=== PATIENT | female | born 1985 | race Two or more races ===

== ENCOUNTER 2024-06-06 02:09 | Emergency (ER) | payer MEDICAID, SELFPAY ==
[2024-06-06 02:10] VITALS: BMI 28.3
--- NOTE | 2024-06-06 02:19 | EKG_ITS ---
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
[2024-06-06 02:21] VITALS: BP 127/77; PULSE 85; RESP 18; TEMP 37.2; O2SAT 99
[2024-06-06 03:38] LABS: HCG Qualitative,Urine Positive
[2024-06-06 03:44] LABS: Amphetamine/Methamp Scrn,U Negative (Negative); Barbiturate Screen,Urine Negative (Negative); Benzodiazepines Screen,Urine Negative (Negative); Benzoylecgonine Screen, Ur Negative (Negative); Fentanyl Screen,Urine Negative (Negative); Opiate Screen,Urine Negative (Negative); THC Screen,Urine Negative (Negative)
--- NOTE | 2024-06-06 04:01 | EDNOTE_ITS ---
<Statement entered by Natalee Casey MD - 06/06/24 18:35> As co-signing physician, I was present and available for consult prn. I concur with the plan and care as documented by the midlevel provider. ED Chest Pain RME/HPI General Chief Complaint: Chest Pain Stated Complaint: CHEST PAIN Time Seen by Provider: 06/06/24 03:04 Arrival date/time: 06/06/24 02:09 38F with history of appendectomy, thyroid cancer (s/p resection; on Synthroid with no recent dose changes), anxiety, and ectopic presents to ED with several hours of full-body tingling/numbness as well as CP because she has had several days of intermittent pelvic pain (but no vaginal bleeding). Because her LMP was about 5 weeks ago, she was concerned about possibly having another ectopic (leading to single tubal resection, though she doesn't remember which side). Limitations: no limitations Related Data Home Medications ?Medication ?Instructions ?Recorded ?Confirmed vit no.95-ferrous 1 tab PO DAILY 02/12/18 fumarate 28 mg-folic acid 800 mcg tablet () Allergies Allergy/AdvReac Type Severity Reaction Status Date / Time No Known Allergies Allergy Verified 06/06/24 02:17 Review of Systems Review of Systems Systems Reviewed: All systems reviewed, normal except as documented Constitutional Constitutional: Reports system reviewed and no additional complaints, except as documented, Denies fever(s) and Denies headache(s) ENT Ears, Nose, Mouth, and Throat: Denies disequilibrium and Denies headache(s) Cardiovascular Cardiovascular: Reports system reviewed and no additional complaints, except as documented, Reports as per HPI, Reports chest pain and Denies dyspnea Respiratory Respiratory: Reports system reviewed and no additional complaints, except as documented, Denies cough and Denies dyspnea Gastrointestinal Gastrointestinal: Reports system reviewed and no additional complaints, except as documented, Denies abdominal pain, Denies nausea and Denies vomiting Genitourinary Genitourinary: Reports as per HPI and Reports pelvic pain Musculoskeletal Musculoskeletal: Reports numbness and Reports tingling Neurologic Neurologic: Reports system reviewed and no additional complaints, except as documented, Reports as per HPI, Denies confusion, Denies disequilibrium, Denies headache(s), Reports numbness and Reports tingling Psychiatric Psychiatric: Denies confusion Past Medical History Past Medical History NEUROLOGIC: Positive Neurological Disorders and Migraine CARDIAC: Negative Cardiac Disorders or Congestive Heart Failure RESPIRATORY: Negative Chronic Obstructive Pulmonary Disease (COPD) GASTROINTESTINAL: Positive Hemorrhoids (during ); Negative Gastrointestinal Disorders, Hepatitis or Colorectal Cancer GENITOURINARY: Negative Genitourinary Disorders, Renal Disease or Prostate Cancer REPRODUCTIVE: Positive Previous Pregnancies; Negative Breast Cancer or Testicular Cancer MUSCULOSKELETAL: Positive Musculoskeletal Disorders (herniated disc); Negative Bone Cancer or Carpal Tunnel Syndrome ENT: Negative Cataracts ENDOCRINE: Positive Adrenal Disease; Negative Endocrine Disorders, Diabetes Mellitus Type 1 or Diabetes Mellitus Type 2 HEMATOLOGIC: Negative Blood Disorders PSYCHO/SOCIAL: Positive Anxiety and Depression (PPD) OTHER HISTORY: Positive Hospitalization (ECTOPIC ) and Chicken Pox; Negative Autoimmune Disease, Down Syndrome, Developmental Delay, Falls, Blood Transfusions, Blood Transfusion Reaction, Anesthesia Reactions, Organ Transplant, Chemotherapy, Radiation Therapy, Hyperbaric Therapy, MRSA, Vancomycin-Resistant Enterococci, Human Immunodeficiency Virus (HIV), Measles, Mumps, Rubella (Honduran Measles), Pertussis, Clostridium Difficile, Breast Cancer, Cervical Cancer, Colorectal Cancer, Lung Cancer, Ovarian Cancer, Prostate Cancer or Testicular Cancer Family History FAMILY HISTORY: Positive Family Respiratory Disorders (brother as infant of bronchitis), Family Cardiac Disorders (MOM HYPERTENSION), Family Gastrointestinal Problems (dad-ulcers) and Family Cancer (sister-brain); Negative Family Psychiatric Problems, Family Surgery or Family Anesthesia Re action Surgical History SURGICAL: Positive Abdominal Surgery; Negative Endocrine Surgery, Thyroidectomy, Ear Surgery, Tympanostomy Tube, Eye Surgery, Nose Surgery, Oral Surgery, Tonsillectomy, Adenoidectomy, Cochlear Implant, Corneal Transplant, Throat Surgery, Tracheostomy, Gastric Bypass Surgery, Gastrostomy, Bowel Surgery, Nephrectomy, Transurethral Resection, Joint Replacement, Amputation, Open Reduction Internal Fixation, Arthroscopy, Neurologic Surgery, Brain Shunt, Tubal Ligation (Right salpingectomy), Section, Vasectomy or Organ Transplant Social History SMOKING STATUS: Never smoker ED Exam General Limitations: Present no limitations General appearance: Present alert, in no apparent distress and anxious Head Head exam: Present atraumatic Eye Eye exam: Present normal appearance, PERRL and EOMI ENT ENT exam: Present normal exam, normal oropharynx and mucous membranes moist Neck Neck exam: Present normal inspection, full ROM and trachea midline Chest Chest inspection: Present normal inspection and symmetric chest wall rise Respiratory Respiratory exam: Present normal lung sounds bilaterally Cardiovascular Cardiovascular exam: Present regular rate, normal rhythm and normal heart sounds Abdominal Exam Abdominal exam: Present soft and normal bowel sounds Extremities Exam Extremities exam: Present normal inspection and full ROM Back Exam Back exam: Present normal inspection and full ROM Neurological Exam Neurological exam: Present alert, oriented X3 and CN II-XII intact Psychiatric Psychiatric exam: Present normal affect and normal mood Skin Skin exam: Present warm, dry, intact and normal color Course Quality Measures none Orders Category Date Time Status EKG (ED ONLY) *Do not use* NOW Care 06/06/24 02:19 Completed EKG (ED Only) Stat Exams 06/06/24 02:19 Draft Drug Screen,Urine Stat Lab 06/06/24 03:05 Completed HCG Qualitative,Urine Stat Lab 06/06/24 03:05 Completed Diazepam [Valium] Med 06/06/24 03:04 Discontinued 5 mg PO X1 ONE Vital Signs Vital signs: Vital Signs Temperature 99.0 F 06/06/24 02:21 Pulse Rate 85 06/06/24 02:21 Respiratory Rate 18 06/06/24 02:21 Blood Pressure 127/77 06/06/24 02:21 Pulse Oximetry (%) 99 06/06/24 02:21 Oxygen Delivery Method Room Air 06/06/24 02:21 O2 at 99% on RA and WNLs Chest Pain MDM Narrative MDM Narrative:: 38F with history of appendectomy, thyroid cancer (s/p resection; on Synthroid with no recent dose changes), anxiety, and ectopic presents to ED with several hours of full-body tingling/numbness as well as CP because she has had several days of intermittent pelvic pain (but no vaginal bleeding). Because her LMP was about 5 weeks ago, she was concerned about possibly having another ectopic (leading to single tubal resection, though she doesn't remember which side). Physical exam reveals clear lungs. RRR. No ab/pelvic tenderness. Patient is afebrile, alert, but anxious. HCG urine positive. Tox screen neg. EKG is NSR. After 2 hours observation, patient states symptoms went away. Patient declines blood work and US here as she states during her ectopic , her symptoms got worse rather than better like it did today. Patient will follow-up with OBGYN and return if any worsening symptoms. Patient data External records reviewed:: [facility] previous records Clinical information provided by:: patient Social determinants that could affect healthcare access:: mental health Patient has the following chronic illnesses:: history of thyroid cancer (s/p resection; on Synthroid with no recent dose changes), anxiety, and ectopic How is presenting disease/condition affected by chronic disease/condition?: exacerbated by Evaluation data The following diagnostics were reviewed and interpreted by me:: lab results and EKG tracing(s) Lab and/or radiology exams considered but not ordered:: ordered Interpretation Summary: above Medications / Prescriptions Medications or Prescriptions considered but not ordered:: ordered Medication administrations:: Medication Administration History Discontinued Medications Diazepam (Diazepam 5 Mg Tablet) 5 mg PO X1 ONE Stop: 06/06/24 03:05 Last Admin: 06/06/24 03:57 Dose: Not Given Documented By: SE Non-Admin Reason: Cancelled by Provider cancelled; patient declined Consultations Consultation(s) initiated? (list below): No Diagnosis Chest Pain Differential Diagnosis: fracture of rib, pneumothorax, stable angina, unstable angina pectoris, atypical chest pain, st elevation myocardial infarction, costochondritis, chest pain, biliary colic and other (anxiety, , ectopic , ACS, PE) Most likely diagnosis given after review of the tests above:: anxiety and Admission Indicated Admission indicated?: not indicated Admission Request Was there a request for admission?: No Disposition Plan Disposition Plan: Discharge Discharge Attestation Discharge Attestation: The patient and all family members were given an opportunity to ask questions and understood the discharge instructions. Discharge instructions specifically effects, indications for sooner follow up or return to the emergency department, and the expected course of current diagnosis. Patient condition: Stable Discharge Plan Plan Patient Disposition: HOME (Self Care) Disposition Comment: Stable Prescriptions/Referrals Prescriptions/Med Rec: No Action PNV cmb#95-ferrous fumarate-FA [] 28 mg iron- 800 mcg Tablet 1 tab PO DAILY Referrals: Jersey Menezes MD [Primary Care Provider] - In 1 week Problem List Clinical Impression: , Anxiety Patient/Caregiver Discharge Instructions Education Materials: Your Body's Response to Anxiety Additional Instructions: Please follow-up with PCP within 24-48 hours and return immediately if symptoms worsen. Follow-up with OBGYN for additional evaluation. Return if worsening pain and/or bleeding. Print Language: Romanian Stand Alone Forms: Patient Portal Info Letter DAJUAN/MELONY Supervising Physician DAJUAN/MELONY Supervising Physician: Dr. Casey
== END 2024-06-06 04:03 | disposition home or self-care (01) ==
PROVIDERS: Physician Assistant; Emergency Provider Emergency Medicine; PCP Family Medicine
DX: O99.340 Other mental disorders complicating pregnancy, unspecified trimester (principal); F41.9 Anxiety disorder, unspecified; O99.891 Other specified diseases and conditions complicating pregnancy; R07.9 Chest pain, unspecified; Z3A.00 Weeks of gestation of pregnancy not specified; Z85.850 Personal history of malignant neoplasm of thyroid; Z90.49 Acquired absence of other specified parts of digestive tract; Z90.79 Acquired absence of other genital organ(s); Z79.890 Hormone replacement therapy
CPT/HCPCS: 80307; 81025; 93005; 99283

== ENCOUNTER 2024-07-10 01:03 | Emergency (ER) | payer MEDICAID, SELFPAY ==
[2024-07-10 01:04] VITALS: BMI 29.0
--- NOTE | 2024-07-10 01:29 | XR_ITS ---
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
[2024-07-10 01:31] VITALS: BP 126/89; PULSE 91; RESP 16; TEMP 36.8; O2SAT 97
[2024-07-10 02:04] LABS: Collection Type, Urine Clean Catch
[2024-07-10 02:17] LABS: Bilirubin,Urine Negative (Negative); Blood,Urine Negative (Negative); Clarity,Urine Clear (Clear/Hazy); Color,Urine Colorless (Lt Yel-Yel); Glucose, Urine Negative (Negative); Ketones,Urine Negative (Negative); Leukocyte Esterase,Urine Positive (Negative); Nitrite,Urine Negative (Negative); Protein,Urine Negative (Neg - Trace); RBC,Urine 4 /hpf (0-3); Specific Gravity,Urine 1.008 (1.001-1.035); Squamous Epithelial Cell,Urine 2 /hpf (0-5); Urobilinogen,Urine Negative mg/dL (0.0-1.0); WBC,Urine 4 /hpf (0-5)
--- NOTE | 2024-07-10 04:07 | PD.EDFMALE ---
ED Female Urogenital RME/HPI General Chief complaint: Urogenital-Female Stated complaint: 10 WEEKS PREG FEELING PRESSURE Time Seen by Provider: 07/10/24 01:29 Arrival date/time: 07/10/24 01:03 38F with history of appendectomy, thyroid cancer (s/p resection; on Synthroid with no recent dose changes), anxiety, and ectopic presents to ED with 1 day of pelvic pressure, but denies dysuria, ab/pelvic pain, and vaginal bleeding. Patient had recent US that showed twin gestation around 8-10 weeks where one had FHTs and the other did not. Patient states this does not feel like a UTI because for her, it usually alcantar. Limitations: no limitations Related Data Home Medications ?Medication ?Instructions ?Recorded ?Confirmed vit no.95-ferrous 1 tab PO DAILY 02/12/18 02/12/18 fumarate 28 mg-folic acid 800 mcg tablet () Allergies Allergy/AdvReac Type Severity Reaction Status Date / Time No Known Allergies Allergy Verified 06/06/24 02:17 Review of Systems Review of Systems Systems Reviewed: All systems reviewed, normal except as documented Constitutional Constitutional: Reports system reviewed and no additional complaints, except as documented, Denies fever(s) and Denies headache(s) ENT Ears, Nose, Mouth, and Throat: Denies disequilibrium and Denies headache(s) Cardiovascular Cardiovascular: Reports system reviewed and no additional complaints, except as documented, Denies chest pain and Denies dyspnea Respiratory Respiratory: Reports system reviewed and no additional complaints, except as documented, Denies cough and Denies dyspnea Gastrointestinal Gastrointestinal: Reports system reviewed and no additional complaints, except as documented, Denies abdominal pain, Denies nausea and Denies vomiting Genitourinary Genitourinary: Reports as per HPI and Reports pelvic pain (pressure) Neurologic Neurologic: Reports system reviewed and no additional complaints, except as documented, Denies confusion, Denies disequilibrium and Denies headache(s) Psychiatric Psychiatric: Denies confusion Past Medical History Past Medical History NEUROLOGIC: Positive Neurological Disorders and Migraine CARDIAC: Negative Cardiac Disorders or Congestive Heart Failure RESPIRATORY: Negative Chronic Obstructive Pulmonary Disease (COPD) GASTROINTESTINAL: Positive Hemorrhoids (during ); Negative Gastrointestinal Disorders, Hepatitis or Colorectal Cancer GENITOURINARY: Negative Genitourinary Disorders, Renal Disease or Prostate Cancer REPRODUCTIVE: Positive Previous Pregnancies; Negative Breast Cancer or Testicular Cancer MUSCULOSKELETAL: Positive Musculoskeletal Disorders (herniated disc); Negative Bone Cancer or Carpal Tunnel Syndrome ENT: Negative Cataracts ENDOCRINE: Positive Adrenal Disease; Negative Endocrine Disorders, Diabetes Mellitus Type 1 or Diabetes Mellitus Type 2 HEMATOLOGIC: Negative Blood Disorders PSYCHO/SOCIAL: Positive Anxiety and Depression (PPD) OTHER HISTORY: Positive Hospitalization (ECTOPIC ) and Chicken Pox; Negative Autoimmune Disease, Down Syndrome, Developmental Delay, Falls, Blood Transfusions, Blood Transfusion Reaction, Anesthesia Reactions, Organ Transplant, Chemotherapy, Radiation Therapy, Hyperbaric Therapy, MRSA, Vancomycin-Resistant Enterococci, Human Immunodeficiency Virus (HIV), Measles, Mumps, Rubella (Syriac Measles), Pertussis, Clostridium Difficile, Breast Cancer, Cervical Cancer, Colorectal Cancer, Lung Cancer, Ovarian Cancer, Prostate Cancer or Testicular Cancer Family History FAMILY HISTORY: Positive Family Respiratory Disorders (brother as infant of bronchitis), Family Cardiac Disorders (MOM HYPERTENSION), Family Gastrointestinal Problems (dad-ulcers) and Family Cancer (sister-brain); Negative Family Psychiatric Problems, Family Surgery or Family Anesthesia Reaction Surgical History SURGICAL: Positive Abdominal Surgery; Negative Endocrine Surgery, Thyroidectomy, Ear Surgery, Tympanostomy Tube, Eye Surgery, Nose Surgery, Oral Surgery, Tonsillectomy, Adenoidectomy, Cochlear Implant, Corneal Transplant, Throat Surgery, Tracheostomy, Gastric Bypass Surgery, Gastrostomy, Bowel Surgery, Nephrectomy, Transurethral Resection, Joint Replacement, Amputation, Open Reduction Internal Fixation, Arthroscopy, Neurologic Surgery, Brain Shunt, Tubal Ligation (Right salpingectomy), Section, Vasectomy or Organ Transplant Social History SMOKING STATUS: Never smoker ED Exam General Limitations: Present no limitations General appearance: Present alert and in no apparent distress Head Head exam: Present atraumatic Eye Eye exam: Present normal appearance, PERRL and EOMI ENT ENT exam: Present normal exam, normal oropharynx and mucous membranes moist Neck Neck exam: Present normal inspection, full ROM and trachea midline Chest Chest inspection: Present normal inspection and symmetric chest wall rise Respiratory Respiratory exam: Present normal lung sounds bilaterally Cardiovascular Cardiovascular exam: Present regular rate, normal rhythm and normal heart sounds Abdominal Exam Abdominal exam: Present soft and normal bowel sounds Extremities Exam Extremities exam: Present normal inspection and full ROM Back Exam Back exam: Present normal inspection and full ROM Neurological Exam Neurological exam: Present alert, oriented X3 and CN II-XII intact Psychiatric Psychiatric exam: Present normal affect and normal mood Skin Skin exam: Present warm, dry, intact and normal color Course Quality Measures none Orders Category Date Time Status US OB <= 14 wk twins Stat Exams 07/10/24 01:29 Taken UA [Urinalysis] Stat Lab 07/10/24 01:55 Completed Urine Culture Stat Lab 07/10/24 01:29 Received Vital Signs Vital signs: Vital Signs Temperature 98.3 F 07/10/24 01:31 Pulse Rate 91 07/10/24 01:31 Respiratory Rate 16 07/10/24 01:31 Blood Pressure 126/89 H 07/10/24 01:31 Pulse Oximetry (%) 97 07/10/24 01:31 Oxygen Delivery Method Room Air 07/10/24 01:31 O2 at 97% on RA and WNLs Urogenital - Female MDM Narrative MDM Narrative:: 38F with history of appendectomy, thyroid cancer (s/p resection; on Synthroid with no recent dose changes), anxiety, and ectopic presents to ED with 1 day of pelvic pressure, but denies dysuria, ab/pelvic pain, and vaginal bleeding. Patient had recent US that showed twin gestation around 8-10 weeks where one had FHTs and the other did not. Patient states this does not feel like a UTI because for her, it usually alcantar. Physical exam reveals no pelvic tenderness. Patient is afebrile, calm, and alert. UA clean. US reveals twin gestation, one with FHTs and the other w/o. However, this US states patient has two uteruses, though patient has never heard that before. This is also not the first time she's been . Patient states she will follow-up with OB Dr. Villegas. Patient data External records reviewed:: [facility] [place] previous records Clinical information provided by:: patient Social determinants that could affect healthcare access:: mental health Patient has the following chronic illnesses:: appendectomy, thyroid cancer (s/p resection; on Synthroid with no recent dose changes), anxiety, and ectopic How is presenting disease/condition affected by chronic disease/condition?: exacerbated by Evaluation data The following diagnostics were reviewed and interpreted by me:: lab results and radiology exam(s) Lab and/or radiology exams considered but not ordered:: ordered Interpretation Summary: above Medications / Prescriptions Medications or Prescriptions considered but not ordered:: not ordered Medication administrations:: n/a Consultations Consultation(s) initiated? (list below): No Diagnosis Urogenital Female Differential Diagnosis: urinary tract infection, bacterial vaginosis, trichomoniasis, cervicitis, ovarian cyst, vaginitis, ruptured ovarian cyst, cyst of Bartholin's gland, cystitis, dysmenorrhea and other (pelvic pain during ) Most likely diagnosis given after review of the tests above:: pelvic pain during Admission Indicated Admission indicated?: not indicated Admission Request Was there a request for admission?: No Disposition Plan Disposition Plan: Discharge Discharge Attestation Discharge Attestation: The patient and all family members were given an opportunity to ask questions and understood the discharge instructions. Discharge instructions specifically effects, indications for sooner follow up or return to the emergency department, and the expected course of current diagnosis. Patient condition: Stable Discharge Plan Plan Patient Disposition: HOME (Self Care) Disposition Comment: Stable Prescriptions/Referrals Prescriptions/Med Rec: No Action PNV cmb#95-ferrous fumarate-FA [] 28 mg iron- 800 mcg Tablet 1 tab PO DAILY Referrals: Jersey Menezes MD [Primary Care Provider] - In 1 week Problem List Clinical Impression: Pelvic pain during Patient/Caregiver Discharge Instructions Education Materials: ED Pelvic Pain, Unknown Cause Additional Instructions: Please follow-up with PCP/OBGYN within 24-48 hours and return immediately if symptoms worsen. Print Language: Cameroonian Stand Alone Forms: Patient Portal Info Letter DAJUAN/MELONY Supervising Physician DAJUAN/MELONY Supervising Physician: Dr. Darling
--- NOTE | 2024-07-10 04:49 | PRELIM_ITS ---
Obstetric ultrasound (transabdominal ) with Doppler. July 10, 2024 0301 hours Clinical history: PELVIC PAIN Technique: Real-time ultrasound was performed using Duplex scanning including arterial inflow, venous outflow, color and spectral Doppler analysis of both ovaries. Comparison: None available at the time of this report. Findings: Within the right lateral uterus there is an intrauterine gestation with a single live fetus of mean gestational age 10 weeks and 2 days (CRL= 3.5 cm). cardiac activity is present at heart rate of 167 beats per minute. The yolk sac is visualized. Within the left lateral uterus there is a gestational sac corresponding to a gestational age of 9 weeks and 6 days without evidence of pole. There are 2 anteverted uteruses. The right lateral uterus measures 13.7 x 6.5 x 5.3 cm. The left lateral uterus measures 10.2 x 4.7 x 5.5 cm. The right ovary was not visualized. The left ovary measures 3.7 x 1.9 x 2.8 cm. There is no free fluid in the pelvis. Impression: There are two uteruses. In the right lateral uterus there is a intrauterine gestation with a single live fetus of mean gestational age 10 weeks and 2 days. In the left lateral uterus there is a gestational sac without evidence of pole. Report Electronically Signed By: Lonny Bello 07/10/2024 4:49:04 AM [EST]
== END 2024-07-10 05:09 | disposition home or self-care (01) ==
PROVIDERS: Physician Assistant; Emergency Provider Emergency Medicine; PCP Family Medicine
DX: O34.01 Maternal care for unspecified congenital malformation of uterus, first trimester (principal); Q51.28 Other and unspecified doubling of uterus; Z3A.10 10 weeks gestation of pregnancy
CPT/HCPCS: 76801; 76802; 81001; 87086; 99284

== ENCOUNTER 2024-12-08 09:12 | Outpatient (AMB) | payer MEDICAID, SELFPAY ==
[2024-12-08 09:34] VITALS: BP 119/78; PULSE 89; RESP 17; TEMP 36.5; O2SAT 96; BMI 31.7
--- NOTE | 2024-12-08 09:34 | AMB.OBINITIA ---
Vital Signs 12/08/24 09:34 Height 1.55 m Height Method Measured Weight 76.204 kg Weight Measurement Method Standing Scale BMI 31.7 BP 119/78 Blood Pressure Source Automatic Cuff Blood Pressure Location Right Upper Arm Position Sitting Respiration 17 Pulse 89 Pulse Source Monitor Temp 97.7 F Temp Source Temporal Artery Scan Pulse Oximetry (%) 96 Oxygen Delivery Method Room Air Allergies/Home Meds Allergies & Medications Allergies No Known Allergies Allergy (Verified 12/08/24 09:35) Medication Reconciliation vit no.95-ferrous fumarate 28 mg-folic acid 800 mcg tablet () 1 tab PO DAILY 02/12/18 [History Confirmed 12/08/24] Intake Visit Data Collection New Patient or Established: Established Patient (seen at [facility] within 3 years) Reason for Visit:: OB TRANSFER Consent obtained for Telemed Visit: No Seen by Clinical Staff ONLY (RN/MA): No Supervisor Paint Roller Covers Required: No Do You Feel Safe at Home: Yes Authorities Contacted: N/A PCP or OBGYN visit in last 3 months: No Hx Now: Yes Are you currently on any form of Control: No Last menstrual period: 04/29/24 Pain Present Currently: No Pain Scale Used: Lora-Pacheco/Numerical Pain scale:: 0 Smoking Status Smoking Status: Never smoker Questionnaires Covid-19 Vaccine Questionnaire Has patient been vacinated for Covid-19 Have you been vacinated for Covid-19: No PHQ-9 PHQ-2 Over the last 2 weeks, how often have you been bothered by any of the following problems? 1. Little interest or pleasure in doing things: not at all 2. Feeling down, depressed, or hopeless: not at all Total score: 0 PHQ-9 3. Trouble falling or staying asleep, or sleeping too much: Not at all 4. Feeling tired or having little energy: Not at all 5. Poor appetite or overeating: Not at all 6. Feeling bad about yourself - or that you are a failure or have let yourself or your family down: Not at all 7. Trouble concentrating on things, such as reading the newspaper or watching television: Not at all 8. Moving or speaking so slowly that other people could have noticed? - Or the opposite - being so fidgety or restless that you have been moving around a lot more than usual: not at all 9. Thoughts that you would be better off or of hurting yourself in some way: Not at all Total score: 0 If you checked off any problems, how difficult have these problems made it for you to do your work, take care of things at home, or get along with other people?: not difficult at all Source: Developed by Drs. Reji Reyna, Heather Sandoval, Vaughn Valente and colleagues, with an educational josé miguel from [employer]. Social History Living Situation History Marital Status: Lives With: Family Housing: House Tobacco History Smoking Status: Never smoker Alcohol History Alcohol Intake: Never Domestic Abuse History Do You Feel Safe at Home: Yes History of Present Illness HPI Narrative Chief Complaint Transfer of care from Dr. Villegas, follow-up at 31 weeks and 6 days gestation, fibroid causing pain and discomfort with contractions Maira Rogers, a 5 para 3013, presents for Transfer of Care from Doctor Bakari. She has a history of gestational diabetes, thyroidectomy, depression, depression, anemia, anxiety, and headaches. The patient is currently 31 weeks and 6 days based on her last menstrual period of 04/29/2024, with a due date of 02/03/2025. She reports having a fibroid, which causes pain and discomfort with contractions. The patient is experiencing Denys Arita contractions, which she associates with the fibroid. She is currently taking vitamins and levothyroxine 112 mcg daily. Regarding her gestational diabetes, the patient is currently diet-controlled and not on any medications. She checks her blood sugar levels, which have been within normal ranges (up to 100 fasting and up to 140-150 after eating). The patient recently had her thyroid medication adjusted from 100 mcg to 112 mcg of levothyroxine by her embedded hardware engineer, Dr. Petit in [facility], whom she saw last month. She has been advised not to see the embedded hardware engineer again until after delivery. 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 Past Medical History: Yes Hx Neurological Disorders, No Hx Breast Cancer, No Hx Cardiac Disorders, No Hx Blood Disorders, No Hx Gastrointestinal Disorders, No Hx Renal Disease, No Hx Diabetes Mellitus Type 1, No Hx Diabetes Mellitus Type 2 and No Hx Tubal Ligation (Right salpingectomy) OB Initial Visit OB Flowsheet OB Flowsheet Initial Weight: Not Recorded Date <del>?</del> EGA Weight BP Alb Glu CTX Pres Fundal ht FHR Mov Dilation Station Effacement Hx Notes Visit Note 12/08/24 <del>?</del> 31w 6d 76.204 kg 119/78 absent unknown 32 145 active 32w2d with normal FHR 152, good FM, no current complaints; prior US in [place] complete, no further scans pending; due for routine 3rd tri labs including RPR, CBC, and GC/CT given prior positive. Plan: Tdap administered today; draw CBC, RPR, GC/CT; schedule hospital US at 34?35w; f/u in 2 weeks for ongoing care. Plan: Tdap administered today; draw CBC, RPR, GC/CT; schedule hospital US at 34?35w; f/u in 2 weeks for ongoing visits Menstrual History Menstrual reliability: definite Flow: normal Menstrual regularity: regular Monthly: Yes On control pills at conception: No Date of positive home test: 06/06/24 OB History : 5 Para: 3 Hx # Pregnancies: 0 Hx Total # of Abortions (Spontaneous & Elective): 1 # of Living Children: 3 Delivery History 1st : Child's name: FREDDIE date: 07/08/07 sex: male Gestational age at delivery (weeks): 40 Delivery type: vaginal weight (lbs): 3175.147 g Delivery complications: HEMORRHAGE History of depression before or after : No 2nd : Child's name: ALLI date: 12/18/12 sex: female Gestational age at delivery (weeks): 40 Delivery type: vaginal weight (lbs): 3175.147 g History of depression before or after : No Additional comments: GDM DURING 3rd : Child's name: ALEXANDRU date: 02/18/18 sex: female Gestational age at delivery (weeks): 40 Delivery type: vaginal weight (lbs): 3175.147 g History of depression before or after : No Additional comments: GDM DURING Infection History & Risk Evaluation History of STDs: none HIV risk evaluation: low risk Hepatitis B risk evaluation: low risk Patient or partner has history of Genital Herpes: No Genetic Screening & History Genetic Screening/Teratology Counseling - Includes patient, baby's father, or anyone in either family with: 1. Patient's age 35 years or older as of estimated date of delivery: Yes 2. Thalassemia (Belizean, Azeri, Mediterranean, or Background); MCV less than 80: No 3. Neural Tube Defect (Meningomyelocele, Spina Bifida, or Anencephaly): No 4. Congenital Heart Defect: No 5. Down Syndrome: No 6. Arnoldo-Sachs (Ashkenazi Sabianism, Cajun, Belarusian [place]): No 7. Heidi Disease (Ashkenazi Sabianism): No 8. Familial Dysautonomia (Ashkenazi Sabianism): No 9. Sickle Cell Disease or Trait (): No 10. Hemophilia or other blood disorders: No 11. Muscular Dystrophy: No 12. Cystic Fibrosis: No 13. [place]'s Chorea: No 14. Mental Retardation/Autism: No 15. Other inherited genetic or chromosomal disorder: No 16. Maternal Metabolic Disorder (EG,TYPE 1 Diabetes, PKU): No 17. Patient or baby's father had a child with defects not listed above: No 18. Recurrent loss or a stillbirth: No 19. Medications (including supplements, vitamins, herbs or otc drugs)/illicit/recreational drugs/alcohol since last menstrual period: No 20. Any other: No Infection History 1. Live with someone with TB or exposed to TB: No 2. Rash or viral illness since last menstrual period: No 3. Hepatitis B,C: No Other (see comments) Source: [employer] Exam General General Appearance: alert, in no apparent distress and healthy appearing Head Head exam: atraumatic Neck Neck exam: Present normal inspection and trachea midline Chest Chest inspection: Present normal inspection and symmetric chest wall rise External exam: Present normal external exam; Absent tenderness Neuro Neurological exam: Present oriented X3 Psych Psychiatric exam: Present normal affect and normal mood Office Procedures OB Clinic LOC & Office Proc's Nursing/Assessment Patient Status: Established Patient OB Clinic Nursing Assessment: Medication Reconciliation, Update PMH in EMR and Vital Signs OB Clinic Coordination of Care: Complex Care and Chronic Disease 1-5, Consent,records obtained, informed consent and Education Simp Pt/Fam Special Needs: Heart tones Established Patient Charge Established Patient Point Assignment: 105 Established Patient Point Charge: EP Level 3 (80-115) Assessment & Plan Diagnosis / Problem List (1) Supervision of high risk , unspecified, third trimester: Status: Acute (2) Uterine size date discrepancy, antepartum condition: Status: Acute Plan , intrauterine, 31 weeks 6 days Assessment: Patient is a 31-week 6-day 5 para 3013 presenting for transfer of care. Last menstrual period was 04/29/2024 with an estimated due date of 02/03/2025. History of three full-term vaginal deliveries in 2007, 2012, and 2017. heart rate is 148 bpm, which is within normal limits. Plan: - Order ultrasound to evaluate fibroid - Follow-up appointment in 2 weeks on December 25 at 10:30 Gestational Diabetes Assessment: Patient has a history of gestational diabetes in previous pregnancies. Currently, she is diet-controlled without medication. Based on reported blood glucose levels (fasting <100 mg/dL, postprandial <150 mg/dL), the diagnosis of gestational diabetes in this may have been a false positive. Plan: - Continue diet control - Order Hemoglobin A1c Hypothyroidism status post thyroidectomy Assessment: Patient has a history of thyroidectomy 6 years ago and is currently on levothyroxine 112 mcg daily. Dose was recently increased from 100 mcg by her embedded hardware engineer. Last thyroid function test was performed approximately one month ago. Plan: - Order thyroid function tests (TSH and free T4) - Continue levothyroxine 112 mcg daily - Instruct patient to complete lab work fasting Uterine Fibroid Assessment: Patient reports having a fibroid that causes pain and discomfort with contractions. Generally, fibroids do not interfere with but may cause pain after childbirth. Plan: - Order ultrasound to evaluate fibroid size and location - Reassess after delivery to determine if further treatment is necessary
== END 2024-12-08 10:27 | disposition home or self-care (01) ==
LOC: HODSOBC 09:12
PROVIDERS: Supervising Provider Obstetrics & Gynecology; Visit Provider Obstetrics & Gynecology
DX: O09.523 Supervision of elderly multigravida, third trimester (principal); O09.893 Supervision of other high risk pregnancies, third trimester; O24.410 Gestational diabetes mellitus in pregnancy, diet controlled; O26.843 Uterine size-date discrepancy, third trimester; O99.283 Endocrine, nutritional and metabolic diseases complicating pregnancy, third trimester; E89.0 Postprocedural hypothyroidism; O34.13 Maternal care for benign tumor of corpus uteri, third trimester; D25.9 Leiomyoma of uterus, unspecified; Z3A.31 31 weeks gestation of pregnancy; O09.13 Supervision of pregnancy with history of ectopic pregnancy, third trimester; Z79.890 Hormone replacement therapy
CPT/HCPCS: 99213; G0463

== ENCOUNTER → 2024-12-16 | Outpatient (CLI) | payer MEDICAID, SELFPAY ==
--- NOTE | 2024-12-16 15:14 | XR_ITS ---
Examination: Complete OB ultrasound greater than 14 weeks Date and time of exam: December 16, 2024, 1521 hours INDICATIONS: Pelvic pressure beginning several weeks ago Findings: Viable intrauterine single fetus with single amniotic sac presentation cephalic spine maternal right Cardiac motion 1:30 BPM Placenta fundal grade 2. Umbilical cord insertion seen. Amniotic fluid index 12.5 cm Cervix 4.8 cm Ovaries obscured by bowel gas. Composite estimated gestational age based on BPD, head circumference, abdominal circumference, femur length is 34 weeks 6 days Estimated weight 2609.6 g. Survey of intracranial anatomy, spinal anatomy, abdominal anatomy, four-chamber heart performed with no abnormalities identified. Impression: Viable intrauterine gestation cephalic presentation.
== END | disposition home or self-care (01) ==
PROVIDERS: Referring Provider Obstetrics & Gynecology; Visit Provider Obstetrics & Gynecology
DX: O26.849 Uterine size-date discrepancy, unspecified trimester (principal); Z3A.34 34 weeks gestation of pregnancy
CPT/HCPCS: 76805

== ENCOUNTER 2024-12-25 10:31 | Outpatient (AMB) | payer MEDICAID, SELFPAY ==
[2024-12-25 10:38] VITALS: BP 114/77; PULSE 90; RESP 18; TEMP 36.7; O2SAT 97; BMI 32.0
--- NOTE | 2024-12-25 10:38 | OBCLNT_ITS ---
Vital Signs 12/25/24 10:38 Height 1.55 m Height Method Stated Weight 76.884 kg Weight Measurement Method Standing Scale BMI 32.0 BP 114/77 Blood Pressure Source Automatic Cuff Blood Pressure Location Left Upper Arm Position Sitting Respiration 18 Pulse 90 Pulse Source Monitor Temp 98.1 F Temp Source Oral Pulse Oximetry (%) 97 Oxygen Delivery Method Room Air Allergies/Home Meds Allergies & Medications Allergies No Known Allergies Allergy (Verified 01/29/25 07:00) Medication Reconciliation vit no.95-ferrous fumarate 28 mg-folic acid 800 mcg tablet () 1 tab PO DAILY 02/12/18 [History Confirmed 01/23/25] docusate sodium 100 mg capsule 100 mg PO BID 10 days #20 caps 01/23/25 [Rx] ibuprofen 800 mg tablet 800 mg PO Q8H PRN See Comments 10 days #20 tabs 01/23/25 [Rx] levothyroxine 125 mcg tablet 125 mcg PO ACBR 30 days #30 tabs 01/23/25 [Rx] amoxicillin 875 mg-potassium clavulanate 125 mg tablet 1 tab PO BID infection #20 tabs 01/29/25 [Rx] misoprostol 100 mcg tablet (Cytotec) 100 mcg PO QID #20 tabs 01/29/25 [Rx] Intake Visit Data Collection New Patient or Established: Established Patient (seen at [facility] within 3 years) Reason for Visit:: CARE Seen by Clinical Staff ONLY (RN/MA): No Algorithm Developer Required: No Do You Feel Safe at Home: Yes Authorities Contacted: N/A PCP or OBGYN visit in last 3 months: Yes Hx Now: Yes Are you currently on any form of Control: No Pain Present Currently: No Pain Scale Used: Lora-Pacheco/Numerical Pain scale:: 0 Smoking Status Smoking Status: Never smoker Questionnaires Covid-19 Vaccine Questionnaire Has patient been vacinated for Covid-19 Have you been vacinated for Covid-19: No PHQ-9 PHQ-2 Over the last 2 weeks, how often have you been bothered by any of the following problems? 1. Little interest or pleasure in doing things: not at all 2. Feeling down, depressed, or hopeless: not at all Total score: 0 PHQ-9 3. Trouble falling or staying asleep, or sleeping too much: Not at all 4. Feeling tired or having little energy: Not at all 5. Poor appetite or overeating: Not at all 6. Feeling bad about yourself - or that you are a failure or have let yourself or your family down: Not at all 7. Trouble concentrating on things, such as reading the newspaper or watching television: Not at all 8. Moving or speaking so slowly that other people could have noticed? - Or the opposite - being so fidgety or restless that you have been moving around a lot more than usual: not at all 9. Thoughts that you would be better off or of hurting yourself in some wa y: Not at all Total score: 0 Source: Developed by Drs. Reji Reyna, Heather Sandoval, Vaughn Valente and colleagues, with an educational josé miguel from [employer]. 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 Past Medical History: Yes Hx Neurological Disorders, No Hx Breast Cancer, No Hx Cardiac Disorders, No Hx Blood Disorders, No Hx Gastrointestinal Disorders, No Hx Renal Disease, No Hx Diabetes Mellitus Type 1, No Hx Diabetes Mellitus Type 2 and No Hx Tubal Ligation (Right salpingectomy) Care OB Visit Log OB Flowsheet Initial Weight: Not Recorded Date -?-?-?-?-?-?-?-?-?-?-?-?- EGA Weight BP Alb Glu CTX Pres Fundal ht FHR Mov Dilation Station Effacement Hx Notes Visit Note 12/08/24 -?-?-?-?-?-?-?-?-?-?-?-?- 31w 6d 76.204 kg 119/78 absent unknown 32 145 active 32w2d with normal FHR 152, good FM, no current complaints; prior US in [place] complete, no further scans pending; due for routine 3rd tri labs including RPR, CBC, and GC/CT given prior positive. Plan : Tdap administered today; draw CBC, RPR, GC/CT; schedule hospital US at 34?35w; f/u in 2 weeks for ongoing care. Plan: Tdap administered toda y; draw CBC, RPR, GC/CT; schedule hospital US at 34?35w; f/u in 2 weeks for ongoing visits 12/25/24 -?-?-?-?-?-?-?-?-?-?-?-?- 34w 2d 76.884 kg 114/77 absent unknown 35 163 active - Patient reports feeling stuffy and thinks she might have a cold. - Mentions her children may have broug ht it home from school. - She has been experiencing a lot of pre ssure, which comes and goes. - Patient notes yellowish mucus discharg e. - Denies foul-smelling discharge. Plan - Follow up in 2 weeks for routine OB vi sit - Patient to obtain 2-week supplement fr om front line supervisor 01/11/25 -?-?-?-?-?-?-?-?-?-?-?-?- 36w 5d 76.714 kg 118/77 absent unknown 34 165 active - Patient has gestational diabetes mellitus (GDM), diet-controlled - All glucose logs were within goal at last visit - A1c: 5.5% - History of hypothyroidism - Taking levothyroxine, recently incre ased to 125 mcg per endocrinology - Thyroid labs were euthyroid - Underlying uterine fibroid - Occasional [place] Arita contraction s - Recent [facility] ultrasound (01/04/2025) find ings: - Estimated weight: 3264 grams ( 93rd percentile) - Normal amniotic fluid index (VANESA) an d anatomy - Posterior placenta - Vertex (cephalic) presentation - Biophysical profile score: 11/20 - Patient reports active movement - Schedule induction of labor for January 20, 2025 at 38 weeks gestation per [facility] recommendation - Perform Group B Streptococcus (GBS) sc reening - Continue current levothyroxine dosage of 125 mcg for hypothyroidism - Maintain diet control for gestational diabetes mellitus (GDM) - Plan for tubal ligation at 6 weeks 01/18/25 -?-?-?-?-?-?-?-?-?-?-?-?- 37w 5d 78.188 kg 113/71 absent unknown 38 145 active - Patient reports experiencing contractions - Describes contractions starting high er in the abdomen and traveling downward - Frequency of contractions not specif ied - Denies any active labor symptoms - Reports baby is active - No mention of rupture of membranes o r vaginal bleeding - Currently taking levothyroxine for hypothyroidism management - Follow up in one week at 39 weeks gestation - Check cervix at next visit - NST scheduled (patient to go to [facility] o[facility] main entrance, rescheduled to due to wait time) - Sweep membranes after 39 weeks MARYJANE Calculator Estimated Delivery Date Method Current WG Current Estimate 02/03/25 LMP (Certain) 39w 3d Other Estimates 02/06/25 Ultrasound #1 39w 0d Notes Visit Date: 01/11/25 Last Updated by: Isma Najera MD Laboratory, Imaging, and Diagnostic Test Results - Date: Not specified - A1c: 5.5 - Thyroid labs: Euthyroid - MFM Ultrasound (01/04/2025): - Estimated weight: 3264 grams (93rd percentile) - VANESA: Normal - Anatomy: Normal - Placenta: Posterior - Presentation: Cephalic - Biophysical score: 8/8 - Predicted EFW at 38-39 weeks: 3900 grams Visit Date: 12/25/24 Last Updated by: Isma Najera MD Laboratory, Imaging, and Diagnostic Test Results - Ultrasound (12/16/2024): - Single intrauterine - Cephalic presentation - cardiac motion: 130 bpm - Placenta: fundal, grade 2 - Amniotic fluid index: 12.5 - Cervix length: 4.8 cm - Estimated weight: 2609.6 grams - Gestational age: 34 weeks 6 days - Thyroid panel (12/10/2024): - Free T4: 0.92 - TSH: 2.4 - Hemoglobin A1c: 5.5 - Urine culture: Negative Assessment & Plan Diagnosis / Problem List (1) Maternal care for benign tumor of corpus uteri, unspecified trimester: Status: Acute (2) Anemia complicating childbirth: Status: Acute Plan Problem List - , 34 weeks and 2 days - Bicornuate uterus - Upper respiratory infection Assessment at 34 weeks and 2 days gestation presenting for routine OB visit. Recent ultrasound (12/16/2024) shows single intrauterine with cephalic presentation, cardiac motion 130 bpm, fundal placenta grade 2, VANESA 12.5, cervical length 4.8 cm, and estimated weight 2609.6 grams. Known bicornuate uterus. Thyroid function within normal range (TSH 2.4, Free T4 0.92). A1c 5.5, within target for . Negative urine culture. Patient reports feeling stuffy with possible cold symptoms and experiencing intermittent pressure. Yellowish mucus discharge noted, consistent with normal - related changes. Plan - Follow up in 2 weeks for routine OB visit - Patient to obtain 2-week supplement from front line supervisor 1. Progress Reviewed gestational age, growth, and heart rate. Planned frequent visits (every 2 weeks until 36 weeks, then weekly). 2. Instructed patient to monitor movements and report decreases immediately. 3. Testing Counseled on routine third-trimester labs per guidelines. Discussed potential need for ultrasound or monitoring based on risk factors. 4. Preeclampsia Precaution Educated on preeclampsia signs: severe headache, vision changes, right upper quadrant pain, sudden swelling. Advised urgent reporting of symptoms and discussed blood pressure monitoring if high risk. 5. Labor Precautions Reviewed labor signs: regular contractions, pelvic pressure, back pain, bleeding, or fluid leakage. Instructed to seek immediate care for these symptoms. 6. Lifestyle and Delivery Preparation Reinforced vitamins, nutrition, and safe activity. Discussed plan, pain management, and . Advised on labor preparation (e.g., hospital bag) and expectations. 7. Psychosocial Support Assessed emotional well-being and offered resources for mental health or parenting support.
== END 2024-12-25 10:59 | disposition home or self-care (01) ==
LOC: HODSOBC 10:31
PROVIDERS: Supervising Provider Obstetrics & Gynecology; Visit Provider Obstetrics & Gynecology
DX: O09.893 Supervision of other high risk pregnancies, third trimester (principal); O99.013 Anemia complicating pregnancy, third trimester; O34.13 Maternal care for benign tumor of corpus uteri, third trimester; O99.513 Diseases of the respiratory system complicating pregnancy, third trimester; J06.9 Acute upper respiratory infection, unspecified; O34.03 Maternal care for unspecified congenital malformation of uterus, third trimester; Q51.3 Bicornate uterus; O09.523 Supervision of elderly multigravida, third trimester; Z3A.34 34 weeks gestation of pregnancy
CPT/HCPCS: 99214; G0463

== ENCOUNTER 2025-01-11 10:08 | Outpatient (AMB) | payer MEDICAID, SELFPAY ==
[2025-01-11 10:29] VITALS: BP 118/77; PULSE 76; RESP 14; TEMP 36.6; O2SAT 98; BMI 31.9
--- NOTE | 2025-01-11 10:29 | OBCLNT_ITS ---
Vital Signs 01/11/25 10:29 Height 1.55 m Height Method Stated Weight 76.714 kg Weight Measurement Method Standing Scale BMI 31.9 BP 118/77 Blood Pressure Source Automatic Cuff Blood Pressure Location Left Upper Arm Position Sitting Respiration 14 Pulse 76 Pulse Source Monitor Temp 98 F Temp Source Oral Pulse Oximetry (%) 98 Oxygen Delivery Method Room Air Allergies/Home Meds Allergies & Medications Allergies No Known Allergies Allergy (Verified 01/11/25 10:30) Medication Reconciliation vit no.95-ferrous fumarate 28 mg-folic acid 800 mcg tablet () 1 tab PO DAILY 02/12/18 [History Confirmed 01/11/25] Intake Visit Data Collection New Patient or Established: Established Patient (seen at [facility] within 3 years) Reason for Visit:: CARE Seen by Clinical Staff ONLY (RN/MA): No Electric Meter Technician Required: No Do You Feel Safe at Home: Yes Authorities Contacted: N/A PCP or OBGYN visit in last 3 months: Yes Hx Now: Yes Are you currently on any form of Control: No Pain Present Currently: No Pain Scale Used: Lroa-Pacheco/Numerical Pain scale:: 0 Smoking Status Smoking Status: Never smoker Questionnaires Covid-19 Vaccine Questionnaire Has patient been vacinated for Covid-19 Have you been vacinated for Covid-19: Yes PHQ-9 PHQ-2 Over the last 2 weeks, how often have you been bothered by any of the following problems? 1. Little interest or pleasure in doing things: not at all 2. Feeling down, depressed, or hopeless: not at all Total score: 0 PHQ-9 3. Trouble falling or staying asleep, or sleeping too much: Not at all 4. Feeling tired or having little energy: Not at all 5. Poor appetite or overeating: Not at all 6. Feeling bad about yourself - or that you are a failure or have let yourself or your family down: Not at all 7. Trouble concentrating on things, such as reading the newspaper or watching television: Not at all 8. Moving or speaking so slowly that other people could have noticed? - Or the opposite - being so fidgety or restless that you have been moving around a lot more than usual: not at all 9. Thoughts that you would be better off or of hurting yourself in some way: Not at all Total score: 0 Source: Developed by Drs. Reji Reyna, Heather Sandoval, Vaughn Valente and colleagues, with an educational josé miguel from [employer]. 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: Past Medical History Past Medical History: Yes Hx Neurological Disorders, No Hx Breast Cancer, No Hx Cardiac Disorders, No Hx Blood Disorders, No Hx Gastrointestinal Disorders, No Hx Renal Disease, No Hx Diabetes Mellitus Type 1, No Hx Diabetes Mellitus Type 2 and No Hx Tubal Ligation (Right salpingectomy) Care OB Visit Log OB Flowsheet Initial Weight: Not Recorded Date -?-?-?-?-?-?-?-?-?-?-?-?- EGA Weight BP Alb Glu CTX Pres Fundal ht FHR Mov Dilation Station Effacement Hx Notes Visit Note 12/08/24 -?-?-?-?-?-?-?-?-?-?-?-?- 31w 6d 76.204 kg 119/78 absent unknown 32 145 active 32w2d with normal FHR 152, good FM, no current complaints; prior US in [place] complete, no further scans pending; due for routine 3rd tri labs including RPR, CBC, and GC/CT given prior positive. Plan : Tdap administered today; draw CBC, RPR, GC/CT; schedule hospital US at 34?35w; f/u in 2 weeks for ongoing care. Plan: Tdap administered toda y; draw CBC, RPR, GC/CT; schedule hospital US at 34?35w; f/u in 2 weeks for ongoing visits 01/11/25 -?-?-?-?-?-?-?-?-?-?-?-?- 36w 5d 76.714 kg 118/77 absent unknown 34 165 active - Patient has gestational diabetes mellitus (GDM), diet-controlled - All glucose logs were within goal at last visit - A1c: 5.5% - History of hypothyroidism - Taking levothyroxine, recently incre ased to 125 mcg per endocrinology - Thyroid labs were euthyroid - Underlying uterine fibroid - Occasional [place] Arita contraction s - Recent MFM ultrasound (01/04/2025) find ings: - Estimated weight: 3264 grams ( 93rd percentile) - Normal amniotic fluid index (VANESA) an d anatomy - Posterior placenta - Vertex (cephalic) presentation - Biophysical profile score: 8/8 - Patient reports active movement - Schedule induction of labor for January 20, 2025 at 38 weeks gestation per [facility] recommendation - Perform Group B Streptococcus (GBS) sc reening - Continue current levothyroxine dosage of 125 mcg for hypothyroidism - Maintain diet control for gestational diabetes mellitus (GDM) - Plan for tubal ligation at 6 weeks MARYJANE Calculator Estimated Delivery Date Method Current WG Current Estimate 02/03/25 LMP (Certain) 36w 5d Other Estimates 02/06/25 Ultrasound #1 36w 2d Notes Visit Date: 01/11/25 Last Updated by: Isma Najera MD Laboratory, Imaging, and Diagnostic Test Results - Date: Not specified - A1c: 5.5 - Thyroid labs: Euthyroid - [facility] Ultrasound (01/04/2025): - Estimated weight: 3264 grams (93rd percentile) - VANESA: Normal - Anatomy: Normal - Placenta: Posterior - Presentation: Cephalic - Biophysical score: 8/8 - Predicted EFW at 38-39 weeks: 3900 grams Office Procedures OBC Clinic LOC & Office Proc's Nursing/Assessment Patient Status: Established Patient OB Clinic Nursing Assessment: Medication Reconciliation, Update PMH in EMR and Vital Signs OB Clinic Coordination of Care: AMA, Complex Care and Chronic Disease 1-5, Consent,records obtained, informed consent, Education Simp Pt/Fam, Lab and Imaging orders, Results/Orders obtained and Staff clarify orders Special Needs: Heart tones Miscellaneous Interventions: Culture Specimen Collection Established Patient Charge Established Patient Point Assignment: 170 Established Patient Point Charge: EP Level 5 (160-above) Assessment & Plan Diagnosis / Problem List (1) Supervision of high risk , unspecified, third trimester: Status: Acute (2) Uterine size date discrepancy, antepartum condition: Status: Acute
== END 2025-01-11 11:04 | disposition home or self-care (01) ==
LOC: HODSOBC 10:08
PROVIDERS: Supervising Provider Obstetrics & Gynecology; Visit Provider Obstetrics & Gynecology
DX: O09.893 Supervision of other high risk pregnancies, third trimester (principal); O26.843 Uterine size-date discrepancy, third trimester; O09.513 Supervision of elderly primigravida, third trimester; O24.410 Gestational diabetes mellitus in pregnancy, diet controlled; O99.283 Endocrine, nutritional and metabolic diseases complicating pregnancy, third trimester; E03.9 Hypothyroidism, unspecified; O34.13 Maternal care for benign tumor of corpus uteri, third trimester; D25.9 Leiomyoma of uterus, unspecified; Z3A.36 36 weeks gestation of pregnancy; Z36.85 Encounter for antenatal screening for Streptococcus B; Z79.890 Hormone replacement therapy
CPT/HCPCS: 99215; G0463

== ENCOUNTER 2025-01-18 09:10 | Outpatient (AMB) | payer MEDICAID, SELFPAY ==
[2025-01-18 09:20] VITALS: BP 113/71; PULSE 83; RESP 16; TEMP 36.5; O2SAT 98; BMI 32.5
--- NOTE | 2025-01-18 09:20 | OBCLNT_ITS ---
Vital Signs 01/18/25 09:20 Height 1.55 m Height Method Stated Weight 78.188 kg Weight Measurement Method Standing Scale BMI 32.5 BP 113/71 Blood Pressure Source Automatic Cuff Blood Pressure Location Left Upper Arm Position Sitting Respiration 16 Pulse 83 Pulse Source Monitor Temp 97.7 F Temp Source Oral Pulse Oximetry (%) 98 Oxygen Delivery Method Room Air Allergies/Home Meds Allergies & Medications Allergies No Known Allergies Allergy (Verified 01/18/25 17:44) Medication Reconciliation vit no.95-ferrous fumarate 28 mg-folic acid 800 mcg tablet () 1 tab PO DAILY 02/12/18 [History Confirmed 01/18/25] levothyroxine 100 mcg tablet 100 mcg PO ACBR 01/18/25 [History Confirmed 01/18/25] Intake Visit Data Collection New Patient or Established: Established Patient (seen at [facility] within 3 years) Reason for Visit:: CARE Seen by Clinical Staff ONLY (RN/MA): No Diplomatic Interpreter/Translator Required: No Do You Feel Safe at Home: Yes Authorities Contacted: N/A PCP or OBGYN visit in last 3 months: Yes Hx Now: Yes Are you currently on any form of Control: No Pain Present Currently: No Pain Scale Used: Lora-Pacheco/Numerical Pain scale:: 0 Smoking Status Smoking Status: Never smoker Questionnaires Covid-19 Vaccine Questionnaire Has patient been vacinated for Covid-19 Have you been vacinated for Covid-19: No PHQ-9 PHQ-2 Over the last 2 weeks, how often have you been bothered by any of the following problems? 1. Little interest or pleasure in doing things: not at all 2. Feeling down, depressed, or hopeless: not at all Total score: 0 PHQ-9 3. Trouble falling or staying asleep, or sleeping too much: Not at all 4. Feeling tired or having little energy: Not at all 5. Poor appetite or overeating: Not at all 6. Feeling bad about yourself - or that you are a failure or have let yourself o r your family down: Not at all 7. Trouble concentrating on things, such as reading the newspaper or watching television: Not at all 8. Moving or speaking so slowly that other people could have noticed? - Or the opposite - being so fidgety or restless that you have been moving around a lot more than usual: not at all 9. Thoughts that you would be better off or of hurting yourself in some way: Not at all Total score: 0 Source: Developed by Drs. Reji Reyna, Heather Sandoval, Vaughn Valente and colleagues, with an educational josé miguel from [employer]. 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: Past Medical History Past Medical History: Yes Hx Neurological Disorders, No Hx Breast Cancer, No Hx Cardiac Disorders, No Hx Blood Disorders, No Hx Gastrointestinal Disorders, No Hx Renal Disease, No Hx Diabetes Mellitus Type 1, No Hx Diabetes Mellitus Type 2 and No Hx Tubal Ligation (Right salpingectomy) Care OB Visit Log OB Flowsheet Initial Weight: Not Recorded Date -?-?-?-?-?-?-?-?-?-?-?-?- EGA Weight BP Alb Glu CTX Pres Fundal ht FHR Mov Dilation Station Effacement Hx Notes Visit Note 12/08/24 -?--?-?-?-?-?-?-?-?-?-?-?- 31w 6d 76.204 kg 119/78 absent unknown 32 145 active 32w2d with normal FHR 152, good FM, no current complaints; prior US in [place] complete, no further scans pending; due for routine 3rd tri labs including RPR, CBC, and GC/CT given prior positive. Plan : Tdap administered today; draw CBC, RPR, GC/CT; schedule hospital US at 34?35w; f/u in 2 weeks for ongoing care. Plan: Tdap administered toda y; draw CBC, RPR, GC/CT; schedule hospital US at 34?35w; f/u in 2 weeks for ongoing visits 01/11/25 -?-?-?-?-?-?-?-?-?-?-?-?- 36w 5d 76.714 kg 118/77 absent unknown 34 165 active - Patient has gestational diabetes mellitus (GDM), diet-controlled - All glucose logs were within goal at last visit - A1c: 5.5% - History of hypothyroidism - Taking levothyroxine, recently incre ased to 125 mcg per endocrinology - Thyroid labs were euthyroid - Underlying uterine fibroid - Occasional [place] Arita contraction s - Recent MFM ultrasound (01/04/2025) find ings: - Estimated weight: 3264 grams ( 93rd percentile) - Normal amniotic fluid index (VANESA) an d anatomy - Posterior placenta - Vertex (cephalic) presentation - Biophysical profile score: 11/20 - Patient reports active movement - Schedule induction of labor for January 20, 2025 at 38 weeks gestation per [facility] recommendation - Perform Group B Streptococcus (GBS) sc reening - Continue current levothyroxine dosage of 125 mcg for hypothyroidism - Maintain diet control for gestational diabetes mellitus (GDM) - Plan for tubal ligation at 6 weeks 01/18/25 -?-?-?-?-?-?-?-?-?-?-?-?- 37w 5d 78.188 kg 113/71 absent unknown 38 145 active - Patient reports experiencing contractions - Describes contractions starting high er in the abdomen and traveling downward - Frequency of contractions not specif ied - Denies any active labor symptoms - Reports baby is active - No mention of rupture of membranes o r vaginal bleeding - Currently taking levothyroxine for hypothyroidism management - Follow up in one week at 39 weeks gestation - Check cervix at next visit - NST scheduled (patient to go to [address] [place] [address] entrance, rescheduled to due to wait time) - Sweep membranes after 39 weeks MARYAJNE Calculator Estimated Delivery Date Method Current WG Current Estimate 02/03/25 LMP (Certain) 38w 1d Other Estimates 02/06/25 Ultrasound #1 37w 5d Notes Visit Date: 01/11/25 Last Updated by: Isma Najera MD Laboratory, Imaging, and Diagnostic Test Results - Date: Not specified - A1c: 5.5 - Thyroid labs: Euthyroid - MFM Ultrasound (01/04/2025): - Estimated weight: 3264 grams (93rd percentile) - VANESA: Normal - Anatomy: Normal - Placenta: Posterior - Presentation: Cephalic - Biophysical score: 8 - Predicted EFW at 38-39 weeks: 3900 grams Office Procedures OBC Clinic LOC & Office Proc's Nursing/Assessment Patient Status: Established Patient OB Clinic Nursing Assessment: Medication Reconciliation, Update PMH in EMR and Vital Signs OB Clinic Coordination of Care: Complex Care and Chronic Disease 1-5, Con sent,records obtained, informed consent, Education Simp Pt/Fam, Lab and Imaging orders, Results/Orders obtained and Staff clarify orders Special Needs: Heart tones Established Patient Charge Established Patient Point Assignment: 135 Established Patient Point Charge: EP Level 4 (120-155) Assessment & Plan Diagnosis / Problem List (1) White classification A1 gestational diabetes mellitus: Status: Acute (2) Hypothyroid in , antepartum: Status: Acute (3) Uterine size date discrepancy, antepartum condition: Status: Acute (4) Supervision of high risk , unspecified, third trimester: Status: Acute (5) Anemia complicating childbirth: Status: Acute (6) Maternal care for benign tumor of corpus uteri, unspecified trimester: Status: Acute Plan - Follow up in one week at 39 weeks gestation - Check cervix at next visit - NST scheduled (patient to go to 4th floor main entrance, rescheduled to due to wait time) - Sweep membranes after 39 weeks
== END 2025-01-18 09:37 | disposition home or self-care (01) ==
PROVIDERS: Supervising Provider Obstetrics & Gynecology; Visit Provider Obstetrics & Gynecology
DX: O09.893 Supervision of other high risk pregnancies, third trimester (principal); O24.410 Gestational diabetes mellitus in pregnancy, diet controlled; O26.843 Uterine size-date discrepancy, third trimester; O99.013 Anemia complicating pregnancy, third trimester; O99.283 Endocrine, nutritional and metabolic diseases complicating pregnancy, third trimester; E03.9 Hypothyroidism, unspecified; O09.513 Supervision of elderly primigravida, third trimester; O34.13 Maternal care for benign tumor of corpus uteri, third trimester; Z3A.37 37 weeks gestation of pregnancy; Z79.890 Hormone replacement therapy
CPT/HCPCS: 99214; G0463

== ENCOUNTER 2025-01-18 13:06 | Outpatient (CLI) | payer MEDICAID, SELFPAY ==
[2025-01-18 13:06] VITALS: BMI 32.6
[2025-01-18 13:11] VITALS: BP 92/50; PULSE 82
--- NOTE | 2025-01-18 13:19 | XR_ITS ---
Examination: Biophysical profile, ultrasound Date and time of exam: January 18 thousand 25 1337 hours INDICATIONS: Diagnosis hypothyroidism, diagnosis gestational diabetes Technique: Multiple transabdominal sonographic images of the pelvis abdomen obtained. Attention is directed to the breathing movement, gross body movement, amniotic fluid volume and tone. Findings: Amniotic fluid index 7.9 cm Total biophysical profile is 8 of 8. breathing movement is 2. Gross body movement is 2. tone is 2. Qualitative amniotic fluid volume is 2 Impression: Biophysical profile is 8 of 8.
[2025-01-18 13:20] VITALS: BP 92/50; PULSE 82; RESP 16; TEMP 36.4
--- NOTE | 2025-01-20 13:34 | PC.NURSE ---
CALLED PT TO INFORM OF BEING SIOL FOR TODAY AND BED IS AVAILABLE, PT STATES WAS NOT INFORMED OF BEING SIOL AND IS SCARED OF IOL, STATES HAD NST/US DONE AT [facility] ON SATURDAY AND WAS NOT TOLD THEN WOULD NEED TO HAVE IOL, STATES SAW OB PROVIDER AND OB PROVIDER TOLD PT WOULD SEE HER NEXT WEEK SATURDAY, PT STATES IS CONFUSED AND ASKED TO CLARIFY WITH OB PROVIDER IF NEEDING TO HAVE IOL, CALLED , INFORMED OF PT NOT AWARE OF IOL, PER WILL CALL PT TOMORROW TO SEE IF PT DOES NEED TO BE IOL, RESCHEDULE PT FOR TOMORROW IF PT DOES NEED IOL AFTERALL
--- NOTE | 2025-01-21 08:43 | PC.NURSE ---
RECEIVED CALL FROM , PT TO NOT BE SIOL, DOES NOT NEED IOL DUE TO IS A1GDM, PT TO KEEP SCHEDULED OB APPT BUT COME IN TODAY FOR NST, CALLED PT, INFORMED OF IOL NOT NEEDED, KEEP SCHEDULED OB APPT AND TO COME TODAY AT ANY TIME FOR NST, PT VERBALIZED UNDERSTANDING
== END 2025-01-18 15:00 | disposition home or self-care (01) ==
LOC: S4S1 13:07 → S4SX 13:09
PROVIDERS: Referring Provider Obstetrics & Gynecology; Visit Provider Obstetrics & Gynecology
DX: O99.280 Endocrine, nutritional and metabolic diseases complicating pregnancy, unspecified trimester (principal); E03.9 Hypothyroidism, unspecified; O24.419 Gestational diabetes mellitus in pregnancy, unspecified control; Z3A.00 Weeks of gestation of pregnancy not specified
CPT/HCPCS: 59025; 76819

== ENCOUNTER 2025-01-21 15:25 | Outpatient (CLI) | payer MEDICAID, SELFPAY ==
[2025-01-21 15:31] VITALS: BP 127/65; PULSE 81; RESP 20; TEMP 37; BMI 31.2
--- NOTE | 2025-01-21 15:44 | XR_ITS ---
Examination: Biophysical profile, ultrasound Date and time of exam: January 21, 2025 1622 hours INDICATIONS: Diagnoses hypothyroidism Technique: Multiple transabdominal sonographic images of the pelvis abdomen obtained. Attention is directed to the breathing movement, gross body movement, amniotic fluid volume and tone. Findings: Amniotic fluid index 13.3 cm Total biophysical profile is 8 of 8. breathing movement is 2. Gross body movement is 2. tone is 2. Qualitative amniotic fluid volume is 2 Impression: Biophysical profile is 8 of 8.
== END 2025-01-21 17:07 | disposition home or self-care (01) ==
LOC: S4S1 15:37 → S4SX 15:38
PROVIDERS: Referring Provider Obstetrics & Gynecology; Visit Provider Obstetrics & Gynecology
DX: Z34.83 Encounter for supervision of other normal pregnancy, third trimester (principal); Z36.9 Encounter for antenatal screening, unspecified; Z3A.38 38 weeks gestation of pregnancy
CPT/HCPCS: 59025; 76819

== ENCOUNTER 2025-01-23 11:34 | Inpatient (IN) | payer MEDICAID, SELFPAY ==
[2025-01-23] VITALS (50 sets, daily range): BP systolic 94–138; BP diastolic 51–71; PULSE 67–115; RESP 16–18; TEMP 36.7–37.3; O2SAT 83–100; BMI 32.3
[2025-01-23] MEDS: RINGERS LACTATED 1000 ML 1,000 ML 100 ML IV ×2 (12:05→13:14)
[2025-01-23 12:45] LABS: Basophils # (Auto) 0.0 Thou/mm3 (0.0-0.2); Basophils % (Auto) 0 % (0-2.5); Eosinophils # (Auto) 0.0 Thou/mm3 (0.0-0.5); Eosinophils % (Auto) 0 % (0-10); Hematocrit 34.8 % (36.0-46.0); Hemoglobin 11.6 g/dL (12.0-16.0); Immature Granulocytes Auto 0.04 Thou/mm3 (0.00-0.00); Lymphocytes # (Auto) 1.2 Thou/mm3 (1.0-4.8); Lymphocytes % (Auto) 15 % (10-50); Mean Corpuscular HGB Conc 33.3 g/dl (31.0-37.0); Mean Corpuscular Hemoglobin 28.4 pg (25.0-35.0); Mean Corpuscular Volume 85 fL (80-100); Monocytes # (Auto) 0.3 Thou/mm3 (0.0-0.8); Monocytes % (Auto) 4 % (0-12); Neutrophils # (Auto) 6.5 Thou/mm3 (1.8-7.7); Neutrophils % (Auto) 80 % (37-80); Nucleated Red Blood Cell # 0.00 Thou/mm3 (0.00-0.00); Nucleated Red Blood Cell % 0 /100 WBC (0); Platelet Count 212 Thou/mm3 (140-440); RDW Standard Deviation 52.8 fL (36.4-46.3); Red Blood Count 4.09 Miln/mm3 (4.00-5.20); White Blood Count 8.1 Thou/mm3 (3.6-11.0)
--- NOTE | 2025-01-23 13:38 | ESHP_ITS ---
Documentation for date of: 01/23/25 OB Labor/Induct. HPI History of Present Illness Chief complaint: contractions/loss of fluid : 5 Para: 3 Term pregnancies: 3 pregnancies: 0 Living children: 3 History of Abortions: Spontaneous and Elective: 1 (1 ectopic treated with salpingectomy) History of Vaginal deliveries: 3 History of sections: Yes History of : Yes Date of last menstrual period: 04/29/24 MARYJANE: 02/03/25 Gestational Age (weeks): 38 Gestational Age (days): 3 Gestational age based on last menstrual period: 38 History of present illness: Patient presents for loss of fluid, clear, that occurred at 0600 this morning as well as regular/painful ctx. No vaginal bleeding. Normal movement. No fevers/chills. History of Present Dating criteria: LMP confirmed by 1st trimester US Adequate Care: Yes Ultrasounds: normal 1st trimester US (06/17/24) and normal mid trimester US (11/05/24) Abnormal ultrasound findings: large uterine fibroid Narrative: Hx of at term x3, Hx of GDM x2 Hx of 1 ectopic treated with right salpingectomy Current complicated by: -Hx of thyroid cancer treated with thyroidectomy, currently taking levothyroxine 125mcg QD -AMA, age 39 -Anemia, taking iron -Current BMI 32.3 -A1GDM, initial HgbA1c 5.5, 1hr glucola 164, 3hr GTT 80/206/207/131 -Uterine fibroid -PNC with Dr. Najera after transfer in at 32wk Labs Maternal Blood Type: O Pos Labs: Positive: Rubella Titre, Negative: RPR, Hepatitis B, HIV, Chlamydia, Gonorrhea and Group Beta Strep and Unknown: Herpes Type 1, Herpes Type 2 and Covid-19 Narrative: Initial HgbA1c 5.5 1hr glucola 164 3hr GTT 80/206/207/131 Review of Systems Review of Systems Narrative Review of Systems: Review of Systems Systems Reviewed: All systems reviewed, normal except as documented Constitutional Constitutional: Denies body ache(s), Denies chills, Denies fever(s) and Denies headache(s) ENT Ears, Nose, Mouth, and Throat: Denies headache(s) and Denies vertigo Cardiovascular Cardiovascular: Denies chest pain, Denies palpitations, Denies dyspnea and Denies syncope Respiratory Respiratory: Denies cough, Denies dyspnea Gastrointestinal Gastrointestinal: Denies nausea and Denies vomiting Neurologic Neurologic: Denies convulsions, Denies headache(s), Denies other visual disturbances, Denies syncope and Denies vertigo Past Medical History Family History OTHER FAMILY HX: mother- HTN Surgical History SURGICAL: Positive Section OTHER SURGICAL HX: right salpingectomy to treat ectopic Social History SOCIAL: No tobacco/ETOH/illicit drug use Past Medical History Comments PMH COMMENT: -Hx of thyroid cancer treated with thyroidectomy, currently taking levothyroxine 125mcg QD -Current BMI 32.3 -Hx of GDM -Uterine fibroid Meds Home Medications and Allergies Home Medications ?Medication ?Instructions ?Recorded ?Confirmed ?Type vit no.95-ferrous 1 tab PO DAILY 02/12/1803/09 History fumarate 28 mg-folic acid 800 mcg tablet () levothyroxine 100 mcg tablet 100 mcg PO ACBR 01/18/25 01/23/25 History Allergies Allergy/AdvReac Type Severity Reaction Status Date / Time No Known Allergies Allergy Verified 01/23/25 12:12 OB Exam Physical Exam Vital signs: Pulse BP Pulse Ox 83 100/51 L 99 01/23/25 13:27 01/23/25 13:27 01/23/25 13:33 Narrative: General: well developed, well nourished, no acute distress, conversant Cardiac: normal heart rate Lungs: breathing without distress Abdomen: soft, gravid, non-tender, no rebound or guarding Extremities: no pain with palpation of calves Detailed Labor and Delivery Exam Dilation (cm): 6 Effacement (%): 70 Cervix position: anterior station: -2 Consistency: soft Presentation: Vertex Membranes: ruptured Amniotic fluid: clear monitor accelerations: 15x15 monitor decelerations: None terminal block assembler variability: Moderate (11-25) OB Results Labs 01/23/25 11:05 Labs: Short CBC 01/23/25 Range/Units 11:05 WBC 8.1 (3.6-11.0) Thou/mm3 Hgb 11.6 L (12.0-16.0) g/dL Hct 34.8 L (36.0-46.0) % Plt Count 212 (140-440) Thou/mm3 OB Assessment & Plan Assessment and Plan (1) Active labor at term: Status: Acute Assessment and plan: Maira is a 39yo with SIUP at 38&3wk presenting in active labor with SROM, clear at 0600 this morning. Regular/painful contractions, SCE: 6/70/-2, cephalic. Vitals wnl, benign exam. Reassuring assessment. PMhx/ complicated by: -Hx of thyroid cancer treated with thyroidectomy, currently taking levothyroxine 125mcg QD -AMA, age 39 -Anemia, taking iron -Current BMI 32.3 -A1GDM, initial HgbA1c 5.5, 1hr glucola 164, 3hr GTT 80/206/207/131 -Uterine fibroid -PNC with Dr. Najera after transfer in at 32wk Plan: -Admit to L&D -Establish IV, routine labs -CEFM -Clear liquid diet -Motion Picture Camera Operator/consent re: -GBS status: negative -Anticipate -Safe to proceed (2) Rupture of membranes with clear amniotic fluid: Status: Acute (3) Hypothyroid in , antepartum: Status: Acute (4) White classification A1 gestational diabetes mellitus: Status: Acute (5) Anemia complicating childbirth: Status: Acute (6) Maternal care for benign tumor of corpus uteri, unspecified trimester: Status: Acute
[2025-01-23] MEDS: OXYTOCIN in NS 30 units 30 UNIT/500 ML BAG IV (14:08)
[2025-01-23] MEDS: OXYTOCIN in NS 20 units 20 UNIT/1,000 ML BAG 125 UNIT IV (15:19)
[2025-01-23] MEDS: LIDOCAINE HCL 1% 20 ML VIAL INFL (15:27)
[2025-01-23] MEDS: METHYLERGONOVINE INJ 0.2 MG/ML VIAL IM (15:28)
[2025-01-23] MEDS: BENZO/LANO/ALOE (Dermoplast) 60 GM CAN 1 SPRAY TOP (15:50)
[2025-01-23 15:58] LABS: Syphilis Nonreactive (Nonreactive)
[2025-01-23] MEDS: IBUPROFEN TAB 400 MG TABLET 800 MG PO (16:04)
--- NOTE | 2025-01-23 16:34 | OBDSUM_ITS ---
Data (Peña) Data Hx Section: Yes : 5 Term: 3 : 0 Livin Abortions: Spontaneous & Theraputic: 1 (1 ectopic treated with salpingectomy) Delivery Data (Peña) Labor Data Initiation of labor: Augmentation Induction/Augmentation Agent: None ROM date: 01/23/25 ROM time: 06:00 Amniotic membrane rupture type: Spontaneous Amniotic fluid description: Clear Delivery Data Onset of labor date: 01/23/25 Onset of labor time: 06:00 Complete dilation date: 01/23/25 Complete dilation time: 15:15 Lan[place] delivery date: 01/23/25 delivery time: 15:19 Placenta delivery date: 01/23/25 Placenta delivery time: 15:25 Stage 1 total time: Labor - Stage 1 Duration 9 hours and 15 minutes Delivered by: Libra Nix Delivery nurse: Good RIGGS RN [place] nurse: SHADE Beam Machine Operator at delivery: No Support person(s) at delivery: SISTER OF PATIENT Other staff at delivery: Anita MILLER RN Delivery Method Delivery method: Normal Vaginal Delivery Presentation: Vertex Anesthesia Type Anesthesia Type: Local Placenta Placenta delivery description: Spontaneous Cord blood sent to lab: Yes cord blood collection: Cord Blood Type Episiotomy Episiotomy description: None EBL Estimated blood loss (ml): 200 Umbilical Cord cord description: 3 Vessels Additional Procedures Maira is a 39yo [id number] s/p uncomplicated at 38&3wk after presenting in active labor with SROM, delivering at 1519 on 01/23/2025. On presentation, SCE was 6cm. She progressed with pitocin augmentation to C/C/0 at which point she began pushing. She declined epidural. With good maternal pushing efforts, infant's head delivered OA and restituted ZAHEER. Left anterior shoulder delivered followed by posterior shoulder and corpus. Infant had spontaneous cry and was vigorous. Apgars 8/9. Infant placed on maternal abdomen where nose/mouth were suctioned and dried/stimulated. After approximately 2 minutes, cord was clamped x2 and cut by patient's sister. Cord blood collected for typing. With fundal massage and cord traction, placenta delivered spontaneously and intact with 3 vessel centrally inserted cord. Bimanual massage performed and IV pitocin given per protocol with fundus then firm at u-2cm and hemostasis noted. Inspection of perineum and vagina revealed a 2nd degree midline perineal laceration which was repaired in routine fashion with 3-0 vicryl after anesthetizing with 1% lidocaine- total reapproximation and hemostasis achieved. Small trickle of blood, so sweep just within cervix/SOFI performed which retrieved a small amount of clot. 0.2mg IM methergine given with observed hemostasis after. All counts correct x2. Mom and were doing well when I left the room. Libra Nix MD Complications Complications: none Lanagan Data (Peña) Data order: 1 Lanagan's gender: Male Identification band number: [id number] weight (gms): 3800 g Weight (pounds): 8 lbs and 6.0 ozs Lanagan length: 50.8 cm 1 minute: 8 5 minutes: 9
[2025-01-23] MEDS: DOCUSATE SOD 100 MG CAPSULE PO (20:05)
[2025-01-24 04:37] VITALS: BP 103/64; PULSE 71; RESP 14; TEMP 36.9; O2SAT 97
[2025-01-24] MEDS: IBUPROFEN TAB 400 MG TABLET 800 MG PO ×2 (05:02→14:41)
[2025-01-24] MEDS: LEVOTHYROXINE SODIUM 125 MCG TABLET PO (05:02)
[2025-01-24 06:07] LABS: Basophils # (Auto) 0.0 Thou/mm3 (0.0-0.2); Basophils % (Auto) 0 % (0-2.5); Eosinophils # (Auto) 0.0 Thou/mm3 (0.0-0.5); Eosinophils % (Auto) 0 % (0-10); Hematocrit 33.7 % (36.0-46.0); Hemoglobin 11.1 g/dL (12.0-16.0); Immature Granulocytes Auto 0.07 Thou/mm3 (0.00-0.00); Lymphocytes # (Auto) 2.2 Thou/mm3 (1.0-4.8); Lymphocytes % (Auto) 18 % (10-50); Mean Corpuscular HGB Conc 32.9 g/dl (31.0-37.0); Mean Corpuscular Hemoglobin 28.3 pg (25.0-35.0); Mean Corpuscular Volume 86 fL (80-100); Monocytes # (Auto) 0.7 Thou/mm3 (0.0-0.8); Monocytes % (Auto) 6 % (0-12); Neutrophils # (Auto) 9.2 Thou/mm3 (1.8-7.7); Neutrophils % (Auto) 75 % (37-80); Nucleated Red Blood Cell # 0.00 Thou/mm3 (0.00-0.00); Nucleated Red Blood Cell % 0 /100 WBC (0); Platelet Count 192 Thou/mm3 (140-440); RDW Standard Deviation 53.3 fL (36.4-46.3); Red Blood Count 3.92 Miln/mm3 (4.00-5.20); White Blood Count 12.3 Thou/mm3 (3.6-11.0)
[2025-01-24 08:00] VITALS: BP 97/60; PULSE 76; RESP 16; TEMP 36.7; O2SAT 97
[2025-01-24] MEDS: DOCUSATE SOD 100 MG CAPSULE PO (08:30)
--- NOTE | 2025-01-24 08:58 | PC.CC ---
Patient is a 39-year-old female who presents to the hospital to deliver her baby boy. PERSONAL CARE AID, Tatum received a consult order for HX Post- Depression and Anxiety. Patient confirmed information on demographics. Patient reports she had post- depression 17 years ago from her first child. She disclosed she feels she had depression as there were multiple life stressors. Her was deployed and had a sister pass away. Patient reports she did not struggle with post- depression with the delivery of her other children. Patient reports she has 3 other children 17 year-old male and two females ages 7 and 11. Patient reports the father of the baby is involved and his name is Dakota Avalos. Patient denied CPS and domestic violence history. Patient reports she has all supplies she needs for her . She denied receiving WIC, SNAP, and [employer] Aid. She disclosed she plans on breast-feeding her . PERSONAL CARE AID provided update to RAFAEL Luna.
[2025-01-24 11:47] VITALS: BP 101/61; PULSE 68; RESP 16; TEMP 36.8; O2SAT 97
--- NOTE | 2025-01-24 11:58 | PD.LDDS ---
DS: Providers Provider Date of admission: 01/23/25 13:37 Primary care physician: Physician No Primary/Family Admitting Provider: Libra Nix MD Attending Provider on Admission: Libra Nix MD Consults: 01/23/25 15:54 Referral Routine Comment: Attending Provider on DC: Libra Nix MD Discharging Provider: Libra Nix MD DS: Diagnosis Discharge Diagnosis (1) care and examination immediately after delivery: Status: Acute (2) Active labor at term: Status: Acute (3) Rupture of membranes with clear amniotic fluid: Status: Acute (4) Maternal care for benign tumor of corpus uteri, unspecified trimester: Status: Acute (5) Anemia complicating childbirth: Status: Acute (6) White classification A1 gestational diabetes mellitus: Status: Acute (7) Hypothyroid in , antepartum: Status: Acute Problem List Completed Was Problem List Reviewed/Reconciled?: Yes Summary/Hosp Course Brief History: Maira is a 39yo [id number] s/p uncomplicated at 38&3wk after presenting in active labor with SROM, delivering at 1519 on 01/23/2025. Doing well PPD 1. She has had an uncomplicated course, meeting all milestones and feels ready for discharge home. She is ambulating without lightheadedness, tolerating regular diet no n/v, spontaneously voiding without issue. She has no chest pain or shortness of breath. No fevers or chills. Minimal, appropriate discomfort. Vitals normal, benign exam. Hemodynamically stable with no evidence of infection. PP Hgb 11.1 from 11.6. Peripartum Data Delivery Method: Normal Vaginal Delivery Episiotomy Description: None Status at Discharge Functional status at discharge: independent ambulation Overall status at discharge: patient is back to baseline Time Spent with Patient Time attestation: Total time spent providing and/or coordinating discharge services: Exam Vital Signs Temp Pulse Resp BP Pulse Ox O2 Del Method 98.2 F 68 16 101/61 97 Room Air 01/24/25 11:47 01/24/25 11:47 01/24/25 11:47 01/24/25 11:47 01/24/25 11:47 01/24/25 11:47 Narrative Exam General: well developed, well nourished, no acute distress, conversant Cardiac: normal heart rate Lungs: breathing without distress Abdomen: soft, post-gravid, non-tender, no rebound or guarding, Fundus firm at u-3cm. Extremities: no pain with palpation of calves, trace edema of BLE Discharge Plan Plan Patient Disposition: HOME (Self Care) Patient condition on transfer: Stable Prescriptions/Referrals Prescriptions/Med Rec: New docusate sodium 100 mg Capsule 100 mg PO BID 10 Days Qty: 20 0RF ibuprofen 800 mg tablet 800 mg PO Q8H PRN (Reason: See Comments) 10 Days Qty: 20 0RF levothyroxine 125 mcg Tablet 125 mcg PO ACBR 30 Days Qty: 30 0RF Continued PNV no.95-ferrous fumarate-FA [] 28 mg iron- 800 mcg Tablet 1 tab PO DAILY Discontinued levothyroxine 100 mcg tablet 100 mcg PO ACBR Patient Comments: TAKE 1 TABLET BY MOUTH EVERY DAY IN THE MORNING ON EMPTY STOMACH FOR 90 DAYS Referrals: No Primary/Family,Physician [Primary Care Provider] Patient/Caregiver Discharge Instructions Discharge Activity: activity as tolerated and other Other Discharge Activity Instructions:: vaginal rest and no heavy lifting more than 10 pounds for 6 weeks Other Discharge Diet Instructions: regular diet Education Materials: After a Vaginal Print Language: Spanish Activity Restrictions/Additional Instructions: follow up with Dr. Najera in 4 to 6 weeks for visit, call clinic to schedule appointment Stand Alone Forms: [employer] Award Info., Patient Portal Info Letter Discharge Order Discharge Orders: Discharge (Routine); Ordered 01/24/25 Ordered By: Libra Nix Planned Discharge Date 01/24/25
[2025-01-24 15:56] VITALS: BP 108/70; PULSE 64; RESP 17; TEMP 36.7; O2SAT 98
== END 2025-01-24 17:54 | disposition home or self-care (01) | DRG 560 ==
LOC: S4NX 01-25 05:40 → S4SX 01-25 05:40
PROVIDERS: Admitting Provider Obstetrics & Gynecology; Visit Provider Obstetrics & Gynecology
DX: O42.02 Full-term premature rupture of membranes, onset of labor within 24 hours of rupture (principal); D25.9 Leiomyoma of uterus, unspecified; O24.420 Gestational diabetes mellitus in childbirth, diet controlled; O34.13 Maternal care for benign tumor of corpus uteri, third trimester; O34.219 Maternal care for unspecified type scar from previous cesarean delivery; O99.02 Anemia complicating childbirth; O99.284 Endocrine, nutritional and metabolic diseases complicating childbirth; E89.0 Postprocedural hypothyroidism; Z3A.38 38 weeks gestation of pregnancy; Z37.0 Single live birth; O70.1 Second degree perineal laceration during delivery; Z85.850 Personal history of malignant neoplasm of thyroid; Z87.59 Personal history of other complications of pregnancy, childbirth and the puerperium; Z90.89 Acquired absence of other organs; Z90.79 Acquired absence of other genital organ(s); Z79.890 Hormone replacement therapy
CPT/HCPCS: 36415; 59409; 85025; 86780; 86850; 86900; 86901; 94762; J2210; J2590; J3490; J7120; A9270

== ENCOUNTER 2025-01-29 06:49 | Emergency (ER) | payer MEDICAID, SELFPAY ==
[2025-01-29 06:52] VITALS: BMI 30.2
[2025-01-29 07:06] VITALS: BP 122/80; PULSE 78; RESP 17; TEMP 36.8; O2SAT 97; BMI 28.0
--- NOTE | 2025-01-29 07:10 | XR_ITS ---
Examination: Pelvic ultrasound, transabdominal, complete Technique: Transabdominal ultrasound of the pelvis performed using grayscale imaging Date and time of exam: January 29, 2025, 0736 hours INDICATIONS: January 23, 2025 with fever chills lower back pain and vaginal bleeding heavier today FINDINGS: Uterus 16.4 cm thickened heterogeneous endometrial stripe 3.8 cm, retained products of conception Uterine body area fibroid degeneration 0.8 x 3.7 x 3.6 cm Right ovary obscured by bowel gas Left ovary 4.9 cm arterial flow IMPRESSION: Positive for retained products of conception
[2025-01-29 07:30] LABS: Basophils # (Auto) 0.0 Thou/mm3 (0.0-0.2); Basophils % (Auto) 0 % (0-2.5); Eosinophils # (Auto) 0.1 Thou/mm3 (0.0-0.5); Eosinophils % (Auto) 1 % (0-10); Hematocrit 36.4 % (36.0-46.0); Hemoglobin 12.1 g/dL (12.0-16.0); Immature Granulocytes Auto 0.03 Thou/mm3 (0.00-0.00); Lymphocytes # (Auto) 1.4 Thou/mm3 (1.0-4.8); Lymphocytes % (Auto) 17 % (10-50); Mean Corpuscular HGB Conc 33.2 g/dl (31.0-37.0); Mean Corpuscular Hemoglobin 28.6 pg (25.0-35.0); Mean Corpuscular Volume 86 fL (80-100); Monocytes # (Auto) 0.4 Thou/mm3 (0.0-0.8); Monocytes % (Auto) 5 % (0-12); Neutrophils # (Auto) 5.9 Thou/mm3 (1.8-7.7); Neutrophils % (Auto) 76 % (37-80); Nucleated Red Blood Cell # 0.00 Thou/mm3 (0.00-0.00); Nucleated Red Blood Cell % 0 /100 WBC (0); Platelet Count 236 Thou/mm3 (140-440); RDW Standard Deviation 51.4 fL (36.4-46.3); Red Blood Count 4.23 Miln/mm3 (4.00-5.20); White Blood Count 7.8 Thou/mm3 (3.6-11.0)
[2025-01-29 07:48] LABS: Alanine Aminotransferase 21 U/L (10-49); Albumin, Serum 4.0 gm/dL (3.5-5.0); Albumin/Globulin Ratio 1.5 (1.2-2.2); Alkaline Phosphatase 143 U/L (46-116); Anion Gap 9 (7-16); Aspartate Amino Transferase 23 U/L (0-34); BUN/Creatinine Ratio 8 Ratio (12-20); Bilirubin,Total 0.3 mg/dL (0.3-1.2); Blood Urea Nitrogen < 5 mg/dL (9-23); Calcium 9.1 mg/dL (8.3-10.6); Calcium (Corrected) 9.1 mg/dL (8.5-10.1); Carbon Dioxide 26.2 mMol/L (20.0-31.0); Chloride 107 mMol/L (98-107); Creatinine (Component) 0.6 mg/dL (0.6-1.3); Estimated Creatinine Clearance 120.7 mL/min (>60); Globulin 2.6 gm/dL (2.3-3.5); Glucose 104 mg/dL (74-106); Lipase 25 U/L (12-53); Osmolality,Calculated 280 (275-295); Potassium 3.8 mMol/L (3.4-5.1); Sodium 142 mMol/L (136-145); Total Protein 6.6 gm/dL (5.7-8.2); eGFR > 60 See Note
[2025-01-29] MEDS: IBUPROFEN TAB 400 MG TABLET 800 MG PO (08:01)
[2025-01-29 08:08] LABS: Collection Type, Urine Clean Catch
--- NOTE | 2025-01-29 08:08 | PD.EDRME ---
Rapid Medical Screening Exam RME Arrival date/time: 01/29/25 06:49 39-year-old female 5 days presents to the Emergency Department today for complaint of dysuria, pelvic pain and back pain as well as fever ongoing since last night Chief Complaint: General Adult/Misc Complain Time Seen by Provider: 01/29/25 06:59 Vital signs: Vital Signs Temperature 98.2 F 01/29/25 07:06 Pulse Rate 78 01/29/25 07:06 Respiratory Rate 17 01/29/25 07:06 Blood Pressure 122/80 01/29/25 07:06 Pulse Oximetry (%) 97 01/29/25 07:06 Oxygen Delivery Method Room Air 01/29/25 07:06
[2025-01-29 08:22] LABS: Bacteria,Urine Rare; Bilirubin,Urine Negative (Negative); Blood,Urine 3+ (Negative); Clarity,Urine Clear (Clear/Hazy); Color,Urine Colorless (Lt Yel-Yel); Glucose, Urine Negative (Negative); Ketones,Urine Negative (Negative); Leukocyte Esterase,Urine Positive (Negative); Nitrite,Urine Negative (Negative); PH,Urine 6.5 (5.0-7.0); Protein,Urine Negative (Neg - Trace); RBC,Urine 1 /hpf (0-3); Specific Gravity,Urine 1.007 (1.001-1.035); Squamous Epithelial Cell,Urine 1 /hpf (0-5); Urobilinogen,Urine Negative mg/dL (0.0-1.0); WBC,Urine 17 /hpf (0-5)
[2025-01-29 08:27] LABS: Culture Indicated,Urine Yes
[2025-01-29 09:13] VITALS: BP 120/73; PULSE 69; RESP 18; TEMP 36.9; O2SAT 97
--- NOTE | 2025-01-29 09:59 | PD.EDVAGBL ---
ED OB Contraction Preg RMI/HPI General Chief complaint: General Adult/Misc Complain Stated complaint: LOW BACK, LOWABD PAIN,FEVER AND FREQUENT URINATION Time Seen by Provider: 01/29/25 06:59 Arrival date/time: 01/29/25 06:49 Limitations: no limitations RME / HPI RME / HPI Narrative: 01/29/25 06:49 39-year-old female 5 days presents to the Emergency Department today for complaint of dysuria, pelvic pain and back pain as well as fever ongoing since last night DR. BOWLING MAIN ED EVALUATION: 39 year old female with history of hypothyroidism and status post vaginal delivery on 01/23/2025 presents to the ED for evaluation of pelvic pain, fevers, dysuria, urinary urgency, and vaginal bleeding today. Patient states the bleeding initially had improved though returned 2 days ago that is now accompanied by the pelvic pain and fevers this morning. Denies consulting with her OBGYN since onset of symptoms. Related Data Home Medications ?Medication ?Instructions ?Recorded ?Confirmed vit no.95-ferrous 1 tab PO DAILY 02/12/18 01/23/25 fumarate 28 mg-folic acid 800 mcg tablet () Previous Rx's ?Medication ?Instructions ?Recorded docusate sodium 100 mg capsule 100 mg PO BID 10 days #20 caps 01/23/25 ibuprofen 800 mg tablet 800 mg PO Q8H PRN See Comments 10 01/23/25 days #20 tabs levothyroxine 125 mcg tablet 125 mcg PO ACBR 30 days #30 tabs 01/23/25 amoxicillin 875 mg-potassium 1 tab PO BID infection #20 tabs 01/29/25 clavulanate 125 mg tablet misoprostol 100 mcg tablet 100 mcg PO QID #20 tabs 01/29/25 (Cytotec) Allergies Allergy/AdvReac Type Severity Reaction Status Date / Time No Known Allergies Allergy Verified 01/29/25 07:00 Review of Systems Review of Systems Systems Reviewed: All systems reviewed, normal except as documented Past Medical History Past Medical History NEUROLOGIC: Positive Migraine GASTROINTESTINAL: Positive Hemorrhoids (during ) REPRODUCTIVE: Positive Previous Pregnancies ENDOCRINE: Positive Adrenal Disease PSYCHO/SOCIAL: Positive Anxiety and Depression OTHER HISTORY: Positive Hospitalization, Radiation Therapy, Chicken Pox and Cancer (THYROID CANCER 2018) Family History FAMILY HISTORY: Positive Family Respiratory Disorders, Family Cardiac Disorders (HIGH BLOOD PRESSURE), Family Gastrointestinal Problems and Family Cancer (COLON CANCER 1 YEAR AGO) Surgical History SURGICAL: Positive Thyroidectomy, Abdominal Surgery and Section Social History SMOKING STATUS: Never smoker SECOND HAND EXPOSURE: No ED Exam General Limitations: Present no limitations General appearance: Present alert and in no apparent distress Head Head exam: Present atraumatic, normocephalic and normal inspection Eye Eye exam: Present normal appearance, PERRL and EOMI ENT ENT exam: Present normal exam, normal oropharynx and mucous membranes moist Neck Neck exam: Present normal inspection, full ROM and trachea midline Chest Chest inspection: Present normal inspection and symmetric chest wall rise Respiratory Respiratory exam: Present normal lung sounds bilaterally Cardiovascular Cardiovascular exam: Present regular rate, normal rhythm and normal heart sounds Abdominal Exam Abdominal exam: Present soft, distention (mildly distended ) and normal bowel sounds; Absent tenderness, guarding, rebound or rigidity Extremities Exam Extremities exam: Present normal inspection and full ROM Back Exam Back exam: Present normal inspection and full ROM Neurological Exam Neurological exam: Present alert, oriented X3 and CN II-XII intact Psychiatric Psychiatric exam: Present normal affect and normal mood Skin Skin exam: Present warm, dry, intact and normal color Course Quality Measures none Orders Category Date Time Status US pelvic complete Stat Exams 01/29/25 07:10 Completed CBC Stat Lab 01/29/25 07:17 Completed Comprehensive Metabolic Panel Stat Lab 01/29/25 07:17 Completed Lipase Stat Lab 01/29/25 07:17 Completed UA, C/S IF [Urinalysis, C/S if Indicated] Stat Lab 01/29/25 07:49 Completed Urine Culture Stat Lab 01/29/25 07:49 Received Ibuprofen Tab [Motrin Tab] Med 01/29/25 07:09 Discontinued 800 mg PO X1 ONE Misoprostol [Cytotec] Med 01/29/25 10:55 Discontinued 100 mcg PO X1 ONE cefTRIAXone [Rocephin] 1,000 mg Med 01/29/25 10:54 Discontinued Lidocaine 1% 20 ml [Xylocaine 1% 20 ML] 2.1 ml IM X1 Vital Signs Vital signs: Vital Signs Temperature 98.2 F 01/29/25 07:06 Pulse Rate 78 01/29/25 07:06 Respiratory Rate 17 01/29/25 07:06 Blood Pressure 122/80 01/29/25 07:06 Pulse Oximetry (%) 97 01/29/25 07:06 Oxygen Delivery Method Room Air 01/29/25 07:06 Pulse ox is 97% on room air which is adequate. Vaginal Bleeding MDM Narrative MDM Narrative: I, Deana Bhatti, am scribing for and in the presence of Dr. Bowling. 1038: I called and left a voicemail for OBGYN Dr. Nowak. 1048: I spoke with OBGYN Dr. Nowak. Believes her symptoms will resolve on its own. Advised we give the patient 1g of Rocephin in the ED and discharge her home with Cytotec and Augmentin. Instructed the patient to follow up with her OBGYN in 4-5 days. Patient data External records reviewed:: [facility] previous records (I reviewed delivery record on 01/23/2025 ) Clinical information provided by:: patient Social determinants that could affect healthcare access:: none Patient has the following chronic illnesses:: hypothyroidism and status post vaginal delivery on 01/23/2025 How is presenting disease/condition affected by chronic disease/condition?: exacerbated by Evaluation data The following diagnostics were reviewed and interpreted by me:: lab results and radiology exam(s) Lab and/or radiology exams considered but not ordered:: None Interpretation Summary: Ordering Physician: Bailee FREDERICK)Calvin NP Date of Service: 01/29/25 Procedure(s): US pelvic complete Accession Number(s): [id number] cc: Bailee FREDERICK)Calvin NP; Kaiser Greenfield MD~ Examination: Pelvic ultrasound, transabdominal, complete Technique: Transabdominal ultrasound of the pelvis performed using grayscale imaging Date and time of exam: January 29, 2025, 0736 hours INDICATIONS: January 23, 2025 with fever chills lower back pain and vaginal bleeding heavier today FINDINGS: Uterus 16.4 cm thickened heterogeneous endometrial stripe 3.8 cm, retained products of conception Uterine body area fibroid degeneration 0.8 x 3.7 x 3.6 cm Right ovary obscured by bowel gas Left ovary 4.9 cm arterial flow IMPRESSION: Positive for retained products of conception Dictated By: Kaiser Greenfield MD Signed By: <Electronically signed by Kaiser Greenfield MD in OV> 01/29/25 0802 Medications / Prescriptions Medications or Prescriptions considered but not ordered:: None Medication administrations:: Medication Administration History Discontinued Medications Ceftriaxone Sodium 1,000 mg/ (Lidocaine HCl 2.1 ml) 0 mg IM X1 ONE Stop: 01/29/25 10:55 Ibuprofen (Ibuprofen Tab 400 Mg Tablet) 800 mg PO X1 ONE Stop: 01/29/25 07:10 Last Admin: 01/29/25 08:01 Dose: 800 mg Documented By: JADE Misoprostol (Misoprostol 100 Mcg Tablet) 100 mcg PO X1 ONE Stop: 01/29/25 10:56 See above Consultations Consultation(s) initiated? (list below): Yes Consultation #1 (Physician, Specialty, Details): See above Diagnosis Vaginal Bleeding Differential Diagnosis: vaginal bleeding and other (retained POC, pelvic pain) Most likely diagnosis given after review of the tests above:: Retained products of conception Admission Indicated Admission indicated?: not indicated Admission Request Was there a request for admission?: No Disposition Plan Disposition Plan: Discharge Discharge Attestation Discharge Attestation: The patient and all family members were given an opportunity to ask questions and understood the discharge instructions. Discharge instructions specifically effects, indications for sooner follow up or return to the emergency department, and the expected course of current diagnosis. Patient condition: Stable Discharge Plan Plan Patient Disposition: HOME (Self Care) Patient condition on transfer: Stable Prescriptions/Referrals Prescriptions/Med Rec: New misoprostol [Cytotec] 100 mcg tablet 100 mcg PO QID Qty: 20 1RF amoxicillin-pot clavulanate 875-125 mg tablet 1 tab PO BID MDD 2 Qty: 20 0RF No Action PNV no.95-ferrous fumarate-FA [] 28 mg iron- 800 mcg Tablet 1 tab PO DAILY docusate sodium 100 mg Capsule 100 mg PO BID 10 Days Qty: 20 0RF ibuprofen 800 mg tablet 800 mg PO Q8H PRN (Reason: See Comments) 10 Days Qty: 20 0RF levothyroxine 125 mcg Tablet 125 mcg PO ACBR 30 Days Qty: 30 0RF Referrals: Isma Najera MD [Primary Care Provider, [employer]] - In 1 week Problem List Clinical Impression: Retained products of conception Patient/Caregiver Discharge Instructions Discharge Activity: activity as tolerated Additional Instructions: Please follow-up with your [employer] in 4 to 5 days. Take the Augmentin and Cytotec as prescribed. For pain control please take Tylenol 500 mg 1 to 2 tablets every 6 hours as needed for pain. Print Language: Lithuanian Stand Alone Forms: [employer] Info., Patient Portal Info Letter
[2025-01-29] MEDS: cefTRIAXone 1,000 MG, LIDOCAINE 1% 20 ML 2.1 ML IM (11:15)
[2025-01-29 11:24] VITALS: BP 121/62; PULSE 70; RESP 18; TEMP 36.8; O2SAT 98
== END 2025-01-29 11:28 | disposition home or self-care (01) ==
PROVIDERS: Nurse Practitioner Primary Care; Emergency Provider Family Medicine; PCP Obstetrics & Gynecology
DX: O72.2 Delayed and secondary postpartum hemorrhage (principal); E03.9 Hypothyroidism, unspecified; N93.9 Abnormal uterine and vaginal bleeding, unspecified
CPT/HCPCS: 36415; 76856; 80053; 81001; 83690; 85025; 87086; 99283; J0696; J3490; A9270

== ENCOUNTER 2025-02-02 10:10 | Outpatient (AMB) | payer MEDICAID, SELFPAY ==
--- NOTE | 2025-02-02 10:27 | AMB.OBPP ---
Vital Signs 02/02/25 10:28 Height 1.6 m Height Method Stated Weight 71.724 kg Weight Measurement Method Standing Scale BMI 28.0 BP 127/81 Blood Pressure Source Automatic Cuff Blood Pressure Location Left Upper Arm Position Sitting Respiration 16 Pulse 98 Pulse Source Monitor Temp 97.2 F Temp Source Oral Pulse Oximetry (%) 98 Oxygen Delivery Method Room Air Allergies/Home Meds Allergies & Medications Allergies No Known Allergies Allergy (Verified 02/02/25 10:28) Medication Reconciliation vit no.95-ferrous fumarate 28 mg-folic acid 800 mcg tablet () 1 tab PO DAILY 02/12/18 [History Confirmed 02/02/25] levothyroxine 125 mcg tablet 125 mcg PO ACBR 30 days #30 tabs 01/23/25 [Rx Confirmed 02/02/25] amoxicillin 875 mg-potassium clavulanate 125 mg tablet 1 tab PO BID infection #20 tabs 01/29/25 [Rx Confirmed 02/02/25] misoprostol 100 mcg tablet (Cytotec) 100 mcg PO QID #20 tabs 01/29/25 [Rx Confirmed 02/02/25] clindamycin HCl 300 mg capsule (Cleocin HCl) 300 mg PO TID 7 days #21 caps 02/02/25 [Rx] Intake Visit Data Collection New Patient or Established: Established Patient (seen at [facility] within 3 years) Reason for Visit:: / PATIENT HAS BEEN HAVING FEVERS TEMP TODAY 98.7 Seen by Clinical Staff ONLY (RN/MA): No Real Estate Loan Processor Required: No Do You Feel Safe at Home: Yes Authorities Contacted: N/A PCP or OBGYN visit in last 3 months: Yes Date of Last PCP or OBGYN visit: 01/29/25 Hx Now: Yes Are you currently on any form of Control: No Pain Present Currently: No Pain Scale Used: Lora-Pacheco/Numerical Pain scale:: 0 Smoking Status Smoking Status: Never smoker Immunizations Flu Vaccine in the Last 12 Months: No Flu Vaccine Exclusion Criteria: No Exclusion Criteria YARN PACKER: Past Medical History Past Medical History: No Hx Neurological Disorders, No Hx Breast Cancer, No Hx Cardiac Disorders, Yes Hx Cancer (THYROID CANCER 2018), No Hx Blood Disorders, No Hx Anemia, No Hx Gastrointestinal Disorders, No Hx Renal Disease, No Hx Diabetes Mellitus Type 1, No Hx Diabetes Mellitus Type 2 and No Hx Tubal Ligation (Right salpingectomy) Questionnaires Covid-19 Vaccine Questionnaire Has patient been vacinated for Covid-19 Have you been vacinated for Covid-19: No Social History Living Situation History Lives With: Family Housing: House Tobacco History Smoking Status: Never smoker Second Hand Smoke Exposure: No Alcohol History Alcohol Intake: Never Domestic Abuse History Do You Feel Safe at Home: Yes EPDS - PP Depression Screening [place] Pospartum Depression Screen I have been able to laugh and see the funny side of things: (0) As much as I always could I have looked forward with enjoyment to things: (0) As much as I ever did I have blamed myself unnecessarily when things went wrong: (0) No, never I have been anxious or worried for no good reason: (0) No, not at all I have felt scared or panicky for no very good reason: (0) No, not at all Things have been getting on top of me: (0) No, I have been coping as well as ever I have been so unhappy that I have had difficulty sleeping: (0) No, not at all I have felt sad or miserable: (0) No, not at all I have been so unhappy that I have been crying: (0) No, never The thought of harming myself has occurred to me: (0) Never Total Score: EPDS Score: Referral is indicated for score of 9 or more, suicidal, or if provider believes patient is depressed regardless of score.: 0 EPDS completed yes Care OB Visit Log OB Flowsheet Initial Weight: Not Recorded Date <del>?</del> EGA Weight BP Alb Glu CTX Pres Fundal ht FHR Mov Dilation Station Effacement Hx Notes Visit Note 12/08/24 <del>?</del> 31w 6d 76.204 kg 119/78 absent unknown 32 145 active 32w2d with normal FHR 152, good FM, no current complaints; prior US in [place] complete, no further scans pending; due for routine 3rd tri labs including RPR, CBC, and GC/CT given prior positive. Plan: Tdap administered today; draw CBC, RPR, GC/CT; schedule hospital US at 34?35w; f/u in 2 weeks for ongoing care. Plan: Tdap administered today; draw CBC, RPR, GC/CT; schedule hospital US at 34?35w; f/u in 2 weeks for ongoing visits 12/25/24 <del>?</del> 34w 2d 76.884 kg 114/77 absent unknown 35 163 active - Patient reports feeling stuffy and thinks she might have a cold. - Mentions her children may have brought it home from school. - She has been experiencing a lot of pressure, which comes and goes. - Patient notes yellowish mucus discharge. - Denies foul-smelling discharge. Plan - Follow up in 2 weeks for routine OB visit - Patient to obtain 2-week supplement from front maker 01/11/25 <del>?</del> 36w 5d 76.714 kg 118/77 absent unknown 34 165 active - Patient has gestational diabetes mellitus (GDM), diet-controlled - All glucose logs were within goal at last visit - A1c: 5.5% - History of hypothyroidism - Taking levothyroxine, recently increased to 125 mcg per endocrinology - Thyroid labs were euthyroid - Underlying uterine fibroid - Occasional [place] contractions - Recent [facility] ultrasound (01/04/2025) findings: - Estimated weight: 3264 grams (93rd percentile) - Normal amniotic fluid index (VANESA) and anatomy - Posterior placenta - Vertex (cephalic) presentation - Biophysical profile score: 11/20 - Patient reports active movement - Schedule induction of labor for January 20, 2025 at 38 weeks gestation per [facility] recommendation - Perform Group B Streptococcus (GBS) screening - Continue current levothyroxine dosage of 125 mcg for hypothyroidism - Maintain diet control for gestational diabetes mellitus (GDM) - Plan for tubal ligation at 6 weeks 01/18/25 <del>?</del> 37w 5d 78.188 kg 113/71 absent unknown 38 145 active - Patient reports experiencing contractions - Describes contractions starting higher in the abdomen and traveling downward - Frequency of contractions not specified - Denies any active labor symptoms - Reports baby is active - No mention of rupture of membranes or vaginal bleeding - Currently taking levothyroxine for hypothyroidism management - Follow up in one week at 39 weeks gestation - Check cervix at next visit - NST scheduled (patient to go to 4th floor main entrance, rescheduled to due to wait time) - Sweep membranes after 39 weeks MARYJANE Calculator Estimated Delivery Date Method Current WG Current Estimate 02/03/25 LMP (Certain) 39w 6d Other Estimates 02/06/25 Ultrasound #1 39w 3d Notes Visit Date: 01/11/25 Last Updated by: Isma Najera MD Laboratory, Imaging, and Diagnostic Test Results - Date: Not specified - A1c: 5.5 - Thyroid labs: Euthyroid - [facility] Ultrasound (01/04/2025): - Estimated weight: 3264 grams (93rd percentile) - VANESA: Normal - Anatomy: Normal - Placenta: Posterior - Presentation: Cephalic - Biophysical score: 8/8 - Predicted EFW at 38-39 weeks: 3900 grams Visit Date: 12/25/24 Last Updated by: Isma Najera MD Laboratory, Imaging, and Diagnostic Test Results - Ultrasound (12/16/2024): - Single intrauterine - Cephalic presentation - cardiac motion: 130 bpm - Placenta: fundal, grade 2 - Amniotic fluid index: 12.5 - Cervix length: 4.8 cm - Estimated weight: 2609.6 grams - Gestational age: 34 weeks 6 days - Thyroid panel (12/10/2024): - Free T4: 0.92 - TSH: 2.4 - Hemoglobin A1c: 5.5 - Urine culture: Negative Office Procedures [facility] Clinic LOC & Office Proc's Nursing/Assessment Patient Status: Established Patient OB Clinic Nursing Assessment: Medication Reconciliation, Update PMH in EMR and Vital Signs OB Clinic Coordination of Care: Consent,records obtained, informed consent, Education Simp Pt/Fam, Lab and Imaging orders, Results/Orders obtained and Staff clarify orders Established Patient Charge Established Patient Point Assignment: 80 Established Patient Point Charge: EP Level 3 (80-115) Assessment & Plan Diagnosis / Problem List (1) endometritis: Status: Acute
[2025-02-02 10:28] VITALS: BP 127/81; PULSE 98; RESP 16; TEMP 36.2; O2SAT 98; BMI 28.0
== END 2025-02-02 11:10 | disposition home or self-care (01) ==
LOC: HODSOBC 10:10
PROVIDERS: Supervising Provider Obstetrics & Gynecology; Visit Provider Obstetrics & Gynecology
DX: O86.12 Endometritis following delivery (principal)
CPT/HCPCS: 99213; G0463

== ENCOUNTER 2025-03-03 11:07 | Outpatient (AMB) | payer MEDICAID, SELFPAY ==
[2025-03-03 11:14] VITALS: BP 112/75; PULSE 85; RESP 18; TEMP 36.1; O2SAT 98; BMI 26.8
--- NOTE | 2025-03-03 11:14 | AMBOBPPN_ITS ---
Vital Signs 03/03/25 11:14 Height 1.6 m Height Method Stated Weight 68.719 kg Weight Measurement Method Standing Scale BMI 26.8 BP 112/75 Blood Pressure Source Automatic Cuff Blood Pressure Location Left Upper Arm Position Right Lateral Respiration 18 Pulse 85 Pulse Source Monitor Temp 97 F Temp Source Oral Pulse Oximetry (%) 98 Oxygen Delivery Method Room Air Allergies/Home Meds Allergies & Medications Allergies No Known Allergies Allergy (Verified 03/03/25 11:15) Medication Reconciliation vit no.95-ferrous fumarate 28 mg-folic acid 800 mcg tablet () 1 tab PO DAILY 02/12/18 [History Confirmed 03/03/25] misoprostol 100 mcg tablet (Cytotec) 100 mcg PO QID #20 tabs 01/29/25 [Rx Confirmed 03/03/25] amoxicillin 875 mg-potassium clavulanate 125 mg tablet 1 tab PO BID infection #20 tabs 03/03/25 [Rx] Intake Visit Data Collection New Patient or Established: Established Patient (seen at [facility] within 3 years) Reason for Visit:: PP Seen by Clinical Staff ONLY (RN/MA): No Underground Conduit Installer Required: No Do You Feel Safe at Home: Yes Authorities Contacted: N/A PCP or OBGYN visit in last 3 months: Yes Date of Last PCP or OBGYN visit: 02/02/25 Hx Now: No Are you currently on any form of Control: No Pain Present Currently: No Pain Scale Used: Lora-Pacheco/Numerical Pain scale:: 0 Smoking Status Smoking Status: Never smoker Immunizations Flu Vaccine in the Last 12 Months: No Flu Vaccine Exclusion Criteria: No Exclusion Criteria 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: Past Medical History Past Medical History: No Hx Neurological Disorders, No Hx Breast Cancer, No Hx Cardiac Disorders, Yes Hx Cancer (THYROID CANCER 2018), No Hx Blood Disorders, No Hx Anemia, No Hx Gastrointestinal Disorders, No Hx Renal Disease, No Hx Diabetes Mellitus Type 1, No Hx Diabetes Mellitus Type 2 and No Hx Tubal Ligation (Right salpingectomy) Questionnaires Covid-19 Vaccine Questionnaire Has patient been vacinated for Covid-19 Have you been vacinated for Covid-19: No Social History Living Situation History Lives With: Family Housing: House Tobacco History Smoking Status: Never smoker Second Hand Smoke Exposure: No Alcohol History Alcohol Intake: Never Domestic Abuse History Do You Feel Safe at Home: Yes EPDS - PP Depression Screening Siren Pospartum Depression Screen I have been able to laugh and see the funny side of things: (0) As much as I always could I have looked forward with enjoyment to things: (0) As much as I ever did I have blamed myself unnecessarily when things went wrong: (0) No, never I have been anxious or worried for no good reason: (0) No, not at all I have felt scared or panicky for no very good reason: (0) No, not at all Things have been getting on top of me: (0) No, I have been coping as well as ever I have been so unhappy that I have had difficulty sleeping: (0) No, not at all I have felt sad or miserable: (0) No, not at all I have been so unhappy that I have been crying: (0) No, never The thought of harming myself has occurred to me: (0) Never Total Score: EPDS Score: Referral is indicated for score of 9 or more, suicidal, or if provider believes patient is depressed regardless of score.: 0 EPDS completed yes HPI Interval History: Maira Rogers is a patient who delivered on January 23 and presents for follow-up approximately 5 weeks after delivery. She completed the prescribed antibiotic course as directed. The patient reports feeling better after her reproduction machine loader adjusted her levothyroxine dosage from 125 to 112, which has helped with palpitations she was experiencing. She had been experiencing symptoms related to hyperthyroidism with elevated T4 and low TSH levels. The patient inquired about urinary incontinence issues, which she attributes to stretching and pulling during delivery. She has an obstetric history of G1 T1 L1, having delivered on January 23, [birth year]25 at term gestation. The patient has been taking levothyroxine 125 mcg, recently decreased to 112 mcg by reproduction machine loader. She completed a prescribed course of Augmentin twice daily. ROS: Cardiovascular: Positive for palpitations. Diagnostic Test Results and Labs: - Pelvic ultrasound: Uterus slightly enlarged, anterior fibroid measuring 3.8 cm, endometrial fluid collection (hematometra) - Pelvic X-ray: Negative for fractures or dislocations - Thyroid function tests: T4 elevated, TSH low Exam General General Appearance: alert, in no apparent distress and healthy appearing Head Head exam: atraumatic Neck Neck exam: Present normal inspection and trachea midline Chest Chest inspection: Present normal inspection and symmetric chest wall rise External exam: Present normal external exam; Absent tenderness Neuro Neurological exam: Present oriented X3 Psych Psychiatric exam: Present normal affect and normal mood Office Procedures [facility] Clinic LOC & Office Proc's Nursing/Assessment Patient Status: Established Patient OB Clinic Nursing Assessment: Medication Reconciliation, Update PMH in EMR and Vital Signs OB Clinic Coordination of Care: Consent,records obtained, informed consent, Education Simp Pt/Fam, Lab and Imaging orders, Results/Orders obtained and Staff clarify orders Established Patient Charge Established Patient Point Assignment: 80 Established Patient Point Charge: EP Level 3 (80-115) Assessment & Plan Diagnosis / Problem List (1) endometritis: Status: Acute Plan Endometrial fluid collection: - Pelvic ultrasound reveals endometrial fluid collection consistent with hematometra (blood in the uterus) rather than infection. - Represents ongoing bleeding without retained placenta attributed to low-grade infection that caused inflammation. - Patient completed prescribed antibiotics (Augmentin/amoxicillin-clavulanate). Plan: - Complete Augmentin (amoxicillin-clavulanate) course if not already taken, 2 times daily. - Expect natural resolution with next menstrual period when clot will likely pass. - Repeat pelvic ultrasound in 2 months. - Follow-up appointment in 2 months. Uterine fibroid: - Pelvic ultrasound shows 3.8 cm fibroid in anterior uterus, likely pre-existing before . - Uterus is slightly enlarged, which is normal . - Currently asymptomatic and not requiring intervention. Plan: - Monitor with repeat ultrasound in 2 months to assess baseline size after effects resolve. - No current intervention needed. - Future management options (medications, injections, surgery) available if heavy bleeding develops closer to perimenopause. Hyperthyroidism: - Blood work shows elevated T4 and low TSH consistent with hyperthyroidism, causing palpitations. - Patient was taking levothyroxine 125 mcg and has been adjusted to 112 mcg by reproduction machine loader. Plan: - Continue levothyroxine 112 mcg as adjusted by reproduction machine loader. - Thyroid management under endocrinology care. pelvic floor weakness: - Patient experiencing urinary symptoms consistent with normal pelvic floor changes from stretching and pulling during delivery. Plan: - Perform Kegel exercises: hold urine stream half-way through urination, squeeze, then release to restore muscle tone.
== END 2025-03-03 11:25 | disposition home or self-care (01) ==
LOC: HODSOBC 11:07
PROVIDERS: Supervising Provider Obstetrics & Gynecology; Visit Provider Obstetrics & Gynecology
DX: Z39.2 Encounter for routine postpartum follow-up (principal); O86.12 Endometritis following delivery; O99.285 Endocrine, nutritional and metabolic diseases complicating the puerperium; E05.90 Thyrotoxicosis, unspecified without thyrotoxic crisis or storm; O99.893 Other specified diseases and conditions complicating puerperium; D25.9 Leiomyoma of uterus, unspecified; Z79.890 Hormone replacement therapy; Z85.850 Personal history of malignant neoplasm of thyroid
CPT/HCPCS: 99213; G0463